=== PATIENT | male | born 1980 | race Asian ===

== ENCOUNTER 2020-03-28 07:39 | Outpatient (REF) | payer OTHER, SELFPAY ==
[2020-03-28 12:16] LABS: Anion Gap 11 (12-20); Blood Urea Nitrogen 16 mg/dL (9-16); Calcium 9.2 mg/dL (8.4-10.2); Carbon Dioxide 29 mmol/L (22-29); Chloride 103 mmol/L (96-108); Cholesterol 225 mg/dL; Estimated Glomerular Filt Rate > 60; Glucose Fasting 82 mg/dL (60-99); HDL Cholesterol 40 mg/dL; LDL Cholesterol Calculated 163 mg/dl; Potassium 3.8 mmol/l (3.3-5.1); Sodium 139 mmol/L (135-145); Triglycerides 110 mg/dL
== END 2020-03-28 07:40 | disposition home or self-care (01) ==
LOC: HO.HMGCLDS 07:39
PROVIDERS: PCP Internal Medicine; Visit Provider Internal Medicine
DX: E78.5 Hyperlipidemia, unspecified (principal); I10 Essential (primary) hypertension
CPT/HCPCS: 80048; 80061

== ENCOUNTER 2020-04-21 09:11 | Outpatient (REF) | payer OTHER, SELFPAY ==
--- NOTE | 2020-04-21 09:14 | CT_ITS ---
EXAMINATION: CT ANGIOGRAM BRAIN WITH CONTRAST CLINICAL INFORMATION: Hyperlipidemia. COMPARISON: None. TECHNIQUE: Test bolus sequences followed by intravenous administration 75 mL of Omnipaque 350. Helical imaging was performed in the axial plane from the skull base to the skull vertex. Delayed postcontrast imaging of the head was also performed. The data was processed at the mechatronics technologist workstation for generation of MIP sequences. Angled MIPs and volume rendered reformatted images were also generated at an offline 3D workstation. DLP: 2106 mGy-cm FINDINGS: Brain: There is no intracranial hemorrhage, extra-axial collection, mass effect, or territorial infarction. The ventricles are normal in size and configuration without evidence of hydrocephalus. On the postcontrast images, no abnormal enhancement is seen. The dural venous sinuses demonstrate normal opacification. There is mild paranasal sinus mucosal thickening without fluid levels. The mastoid air cells are clear. The orbital contents appear normal. Head CTA: No intracranial aneurysm is seen. The intracranial internal carotid arteries appear normal. The anterior cerebral artery, anterior communicating artery, and middle cerebral arteries appear normal. The intradural vertebral arteries and basilar artery appear normal. The posterior cerebral arteries appear normal. The posterior communicating arteries are not well seen. CT/CT angio head IMPRESSION: No intracranial abnormality identified. No stenosis, occlusion, or aneurysm seen within the intracranial arterial circulation.
[2020-04-21] MEDS: iohexoL 350 MG/ML 100 ML INFUS..BTL IV (10:48)
== END 2020-04-21 09:12 | disposition home or self-care (01) ==
LOC: HO.CT 09:11
PROVIDERS: PCP Internal Medicine; Visit Provider Internal Medicine
DX: E78.5 Hyperlipidemia, unspecified (principal); Z82.49 Family history of ischemic heart disease and other diseases of the circulatory system
CPT/HCPCS: 70496; Q9967

== ENCOUNTER 2020-12-09 10:08 | Outpatient (REF) | payer OTHER, SELFPAY ==
[2020-12-09 11:59] LABS: Alanine Aminotransferase 34 U/L (0-40); Aspartate Amino Transferase 23 U/L (5-37); Cholesterol 224 mg/dL; HDL Cholesterol 37 mg/dL; LDL Cholesterol Calculated 161 mg/dl; Triglycerides 132 mg/dL
== END 2020-12-09 10:09 | disposition home or self-care (01) ==
LOC: HO.HMGCLDS 10:08
PROVIDERS: PCP Internal Medicine; Visit Provider Internal Medicine
DX: E78.5 Hyperlipidemia, unspecified (principal)
CPT/HCPCS: 36415; 80061; 84450; 84460

== ENCOUNTER 2021-03-15 08:20 | Outpatient (REF) | payer OTHER, SELFPAY ==
[2021-03-15 12:02] LABS: Alanine Aminotransferase 34 U/L (0-40); Aspartate Amino Transferase 21 U/L (5-37); Cholesterol 156 mg/dL; HDL Cholesterol 39 mg/dL; LDL Cholesterol Calculated 97 mg/dl; Triglycerides 104 mg/dL
== END 2021-03-15 08:21 | disposition home or self-care (01) ==
LOC: HO.HMGCLDS 08:20
PROVIDERS: PCP Internal Medicine; Visit Provider Internal Medicine
DX: E78.5 Hyperlipidemia, unspecified (principal)
CPT/HCPCS: 36415; 80061; 82550; 84450; 84460

== ENCOUNTER → 2021-05-25 10:11 | Outpatient (BNVA) | payer OTHER, SELFPAY | PROVIDERS: PCP Internal Medicine; Referring Provider Internal Medicine; Visit Provider Internal Medicine | DX: Z82.49 Family history of ischemic heart disease and other diseases of the circulatory system (principal) | CPT/HCPCS: 93005; 99202 ==

== ENCOUNTER 2021-06-26 09:00 | Outpatient (RCR) | payer OTHER, SELFPAY ==
--- NOTE | 2021-05-24 12:54 | MHC.PT.EP ---
[facility] [place] Office [place] Office [place] Office [address] [phone] F: [phone] F: [phone] F: [phone] F: [phone] Physical Therapy Plan of Care Date of Evaluation: Date of Surgery: Diagnosis: dysfunction of sacral region Assessment: Patient is a 40 year old R handed male who presents with s/s consistent with pain dysfunction of SI joint. 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 Patient past medical history is fairly unremarkable. Current impairments include pain, posture, flexibility, ROM, strength, activity tolerance and functional mobility. Functional limitations include decreased ability to sit, transfer, sleep, stand, walk, and squat. Patient is motivated with good rehab potential. Skilled PT will address impairments and functional limitations in order to achieve goals. Frequency and Duration: The patient will be seen 1x/week for 5 weeks Short Term Goals: I with HEP - 2 weeks Full AROM pain free lumbar - 3 weeks Skilled Nursing Goals: Return to all ADLs - 5 weeks postural/positional modifications - 5 weeks Treatment Plan: Modalities to reduce pain, spasms and effusion. Manual therapy to restore motion and function. Therapeutic exercise to improve strength and flexibility. Neuromuscular re-education for posture and balance. Therapeutic activities to return to functional activities of daily living. Electronically signed by: Kilo Pretty, PT Please sign and return to therapist. Thank you for your referral.
--- NOTE | 2021-07-03 14:08 | MHC.PT.DC ---
[facility] [place] Office [place] Office [place] Office [address] Vikash Peralta [address] [phone] F: [phone] F: [phone] F: [phone] F: [phone] Physical Therapy Discharge Report Diagnosis: dysfunction of sacral region Date of Surgery: Date of Evaluation: 05/24/21 Date of Discharge: 07/03/21 Treatments to Date: 6 Cancellations to Date: 0 No Shows to Date: 0 Discharge Status: Improved Function Independent with HEP Discharge Summary: He did not attend final visit however he called and said he is ready for d/c. At time of last visit, he was I with HEP and demonstrated improved function. Electronically signed by: Shaniqua Rosen PT Please sign and return to therapist. Thank you for your referral.
== END 2021-07-03 14:08 | disposition home or self-care (01) ==
LOC: HO.PTCHIC 09:00
PROVIDERS: PCP Internal Medicine; Visit Provider Internal Medicine
DX: M99.04 Segmental and somatic dysfunction of sacral region (principal); M77.8 Other enthesopathies, not elsewhere classified
CPT/HCPCS: 97110; 97112; 97140; 97161; 97530

== ENCOUNTER → 2021-07-07 08:13 | Outpatient (REF) | payer OTHER, SELFPAY ==
--- NOTE | 2021-07-07 08:16 | CA_ITS ---
Transthoracic Echocardiogram Patient (Last, First, Middle): Moise Infante R Gender: Male Date of : 1980 Age: 40 Procedure Date: 07/07/2021 Procedure Type: Transthoracic Echocardiogram Location: OP Height: 167.64 cm Weight: 74.84 kg BSA: 1.84 m2 Heart Rate: bpm BP: 128 / 80 mmHg Auto Body Repairer: CARMINE Sr MD: Cali Aceves MD Registration Rep: Xavier Day MD Symptoms: I49.8 - Other specified cardiac arrhythmias Study Quality: Good ECG Rhythm: Sinus Conclusions: - Normal study Findings Left Ventricle Normal left ventricular size, thickness, and systolic function. The visually estimated ejection fraction is between 60-65%. Diastolic function is normal for age. Right Ventricle Normal right ventricular cavity size and systolic function. Atria Both atria are normal in size. There is no evidence of interatrial shunt. Aortic Valve Normal aortic valve structure and function. There is no aortic valve stenosis. There is no aortic valve regurgitation. Mitral Valve Normal mitral valve structure and function. There is trace mitral valve regurgitation. There is no mitral valve stenosis. Pulmonic Valve The pulmonic valve is likely normal. Tricuspid Valve Normal tricuspid valve structure. There is trace tricuspid valve regurgitation. The right ventricular systolic pressure is 13 mmHg. Normal right atrial pressure. There is no evidence of pulmonary hypertension. Great Vessels All visible segments of the aorta are normal in size. The pulmonary artery was not well visualized. Venous The inferior vena cava is normal in size and collapses greater than 50% with inspiration. Pericardium/Pleural There is no evidence of pericardial effusion. Prior Study Comparison No prior study available for comparison. Measurements 2D Linear Measurements IVSd: 0.97 0.6-0.9/0.6-1.0 cm LVIDd: 4.62 3.9-5.3/4.2-5.9 cm LVIDd Index: 2.51 2.4-3.2/2.2-3.1 cm/m2 LVIDs: 2.58 2.0-3.6 cm LVPWd: 0.78 0.7-1.1 cm Ao Root: 3.20 2.1-3.5 cm LA Diam: 3.50 2.7-3.8/3.0-4.0 cm LAIDs Index: 1.90 1.5-2.3 cm/m2 LV Mass: 166.64 67-162/88-224 g LV Mass Index: 90.56 43-95/49-115 g/m2 LVOT Diam: 2.00 3.0+(-)1.3 cm 2D Systolic Function EF 4C: 57.40 >55% EF 2C: 61.80 >55% EF BiP: 60.30 >55% Mitral Valve MV Pk E: 0.79 MV PK A: 0.53 MV Decel Time: 238.00 E/A: 1.50 E'Lateral: 9.03 E'Medial: 8.16 E/E' Med: 9.70 E/E' Lat: 8.80 PHT: 70.00 MVA PHT: 3.14 Decel Hyde: 3.34 LVOT LVOT Diam: 2.00 LVOT Area: 3.14 Diastolic Function MV Pk E: 0.79 MV Pk A: 0.53 E/A: 1.50 E'Medial: 8.16 E/E' Med: 9.70 E' Laterial: 9.03 E/E' Lat: 8.80 Right Ventricle TAPSE (mm): 17.00 TVS' Agustín: 10.00 Tricuspid Valve TR Pk Agustín: 1.55 TR Pk Grad: 10.00 RA Press: 3.00 RVSP: 13.00 Great Vessels Aorta Ao Root-2D: 3.20 2.0-3.7 cm Ao Asc: 2.90 2.1-3.4 cm Ao Arch: 2.70 Updated in Other Vendor System with Status of Final Xavier Day MD electronically signed on 07/07/2021 4:58:31 PM with status of Final
== END ==
LOC: HO.CARD 08:13
PROVIDERS: PCP Internal Medicine; Visit Provider Internal Medicine
DX: I49.8 Other specified cardiac arrhythmias (principal)
CPT/HCPCS: 93306

== ENCOUNTER 2021-10-13 10:05 | Outpatient (REF) | payer OTHER, SELFPAY ==
--- NOTE | ~2021-10-13 | FL_ITS ---
EXAMINATION: UPPER GI AND BARIUM SWALLOW CLINICAL INFORMATION: Dysphagia. COMPARISON: None. TECHNIQUE: Upper GI and barium swallow were performed using thin and thick barium and effervescent granules. Barium tablet was also administered. Fluoroscopy time: 1 minute. DAP: 6 Gy-cm2. Images: 5 saved fluoroscopic images. FINDINGS: Esophageal motility is normal. No aspiration or penetration is seen. No esophageal hernia, reflux or stricture is seen. Tablet passed freely into the stomach. The stomach and duodenum are normal appearing. No fold thickening, mass, ulcer or stricture is seen. FL/FL upper GI w Ba Swallow IMPRESSION: Normal barium swallow and upper GI.
== END 2021-10-13 10:06 | disposition home or self-care (01) ==
LOC: HO.XRAY 10:05
PROVIDERS: Visit Provider Internal Medicine
DX: R13.10 Dysphagia, unspecified (principal)
CPT/HCPCS: 74240

== ENCOUNTER 2022-01-18 07:25 | Outpatient (REF) | payer OTHER, SELFPAY ==
[2022-01-18 12:14] LABS: Alanine Aminotransferase 39 U/L (0-40); Aspartate Amino Transferase 22 U/L (5-37); Cholesterol 170 mg/dL; Glucose Fasting 96 mg/dL (60-99); HDL Cholesterol 36 mg/dL; LDL Cholesterol Calculated 94 mg/dl; Triglycerides 201 mg/dL
== END 2022-01-18 07:26 | disposition home or self-care (01) ==
LOC: HO.HMGCLDS 07:25
PROVIDERS: PCP Internal Medicine; Visit Provider Internal Medicine
DX: E78.5 Hyperlipidemia, unspecified (principal)
CPT/HCPCS: 36415; 80061; 82947; 84450; 84460

== ENCOUNTER → 2022-05-28 10:10 | Outpatient (BNVA) | payer OTHER, SELFPAY | PROVIDERS: PCP Internal Medicine; Referring Provider Internal Medicine; Visit Provider Internal Medicine | DX: Z76.89 Persons encountering health services in other specified circumstances (principal); Z82.49 Family history of ischemic heart disease and other diseases of the circulatory system | CPT/HCPCS: 93005; 99212 ==

== ENCOUNTER 2023-03-04 09:16 | Outpatient (AMB) | payer OTHER, SELFPAY ==
[2023-03-04 09:42] VITALS: BP 120/82; PULSE 68; O2SAT 98; BMI 27.8
--- NOTE | 2023-03-04 09:42 | A.OFFPC_ITS ---
Vital Signs 03/04/23 09:42 Height 5 ft 5 in Weight 167 lb 4 oz BMI 27.8 BP 120/82 Blood Pressure Location Lt brachial Position Sitting Pulse 68 Pulse Source Pulse Oximeter Pulse Oximetry (%) 98 Oxygen Delivery Method Room Air Intake Visit Reasons: Annual PE+ NEEDS PHQ9/THRIVE Intake Note: pt is here for a PE Allergies No Known Allergies Allergy (Verified 03/04/23 10:20) Medication List - Last Reconciled 03/04/23 by Puja Nunez MD No Known Home Meds Tobacco use date assessed: 03/04/23 Dental Screening Dental Screen Date: 03/04/23 Did you have a dental visit in the last 12 months?: Yes Did you have a dental problem in the last 6 months where you did not have access to dental care?: No Was dental information given to patient?: Patient has dentist HPI Annual PE+ NEEDS PHQ9/THRIVE HPI Details 42 year-old male, here today for his ph ysical exam. Has history of dyslipidemia, and family history of Brugada syndrome, seen earlier this year by Cardiology, with no clear evidence of Brugada on EKGs. Had an Echocardiogram done with LVEF of 60-65% and otherwise unremarkable. As per Cardiology no specific treatment indicated at this. He has been feeling well, with no comp laints at present time, previously was on rosuvastatin, but stop taking it, does not think that he needs it at this time as his last lipid panel was within normal limits. [facility] Medical History Difficulty swallowing Right wrist tendinitis Somatic dysfunction of left sacroiliac joint Dyslipidemia Family history of aneurysm of blood vessel of brain Surgical History No pertinent past surgical history Family History Father Hypertension Mother Brain aneurysm Diabetes mellitus Other Brugada syndrome Social History Housing: House Alcohol intake: never Patient Tobacco Use Status: Never used Tobacco e-Cigarette/Vaping Use: Never Used Second Hand Smoke Exposure: No service: No Current occupational status: employed Cognitive needs: No Hearing needs: No Vision needs: No Questionnaire PHQ-9 Over the last 2 weeks, how often have you been bothered by any of the following problems? 1. Little interest or pleasure in doing things: not at all 2. Feeling down, depressed, or hopeless: not at all 3. Trouble falling or staying asleep, or sleeping too much: not at all 4. Feeling tired or having little energy: not at all 5. Poor appetite or overeating: not at all 6. Feeling bad about yourself - or that you are a failure or have let yourself or your family down: not at all 7. Trouble concentrating on things, such as reading the newspaper or watching television: not at all 8. Moving or speaking so slowly that other people could have noticed. Or the opposite - being so fidgety or restless that you have been moving around a lot more than usual: not at all 9. Thoughts that you would be better off or of hurting yourself in some way: not at all Total score: 0 Depression Screening Interpretation: Negative Depression Screening Done: Yes 75989 - PHQ-9 Billing: Yes Source: Developed by Drs. Serafin Cardenas, Alia Romero, Abisai Ha and colleagues, with an educational mari from [employer]. Thrive Questionnaire Date Thrive assessed: 03/04/23 I am a: Patient What is your living situation today?: I have a steady place to live Within the past 12 months, did the food you bought not last and you didn't have the money to get more?: Never true Within the past 12 months, did you worry whether your food would run out before you got money to buy more?: Never true Do you have trouble paying for medicines?: No Do you have trouble getting transportation to medical appointments?: No Do you have trouble paying your heating and electricity bill?: No Do you have trouble taking care of your child, family member or friend?: No Do you have trouble with day-to-day activities such as bathing, preparing meals, shopping, managing finances, etc.?: No Are you currently unemployed and looking for a job?: No Are you interested in more education?: No AUDIT C Alcohol Use Questionnaire (AUDIT-C) 1. How often do you have a drink containing alcohol?: Monthly or less 2. How many drinks containing alcohol do you have on a typical day when you are drinking?: 1 or 2 3. How often do you have six or more drinks on one occasion?: Never Total Score: 1 FRANK-7 AMB Questionnaire FRANK-7 Date FRANK - 7 assessed: 03/04/23 Feeling nervous, anxious, or on edge: 0 = Not at all Not being able to stop or control worryin = Not at all Worrying too much about different things: 0 = Not at all Trouble relaxin = Not at all Being so restless that it is hard to sit still: 0 = Not at all Becoming easily annoyed or irritable: 0 = Not at all Feeling afraid as if something awful might happen: 0 = Not at all Total FRANK-7 score (0-4 normal; 5-9 mild; 10-14 moderate; 15-21 severe): 0 Source: Developed by Drs. Serafin Cardenas, Alia Romero, Abisai Ha and colleagues, with an educational mari from [employer]. FRANK-7 Assessment Billing FRAKN-7 Assessment Tool: FRANK-7 Assessment 39782 Review of Systems Const Denies headache(s), Denies lethargy, Denies malaise and Denies weakness Eyes Reports requires corrective lenses ENT Details: Sees dentist every 6 months Denies dizziness and Denies headache(s) Card Denies chest pain, Denies chest pain with activity, Denies rapid heart rate, Denies irregular heart rhythm, Denies lightheadedness and Denies dyspnea Resp Denies cough and Denies dyspnea GI Denies abdominal pain, Denies change in bowel habits and Denies heartburn Reports no additional complaints Musc Denies deformity, Denies joint swelling and Denies numbness Skin/Breast Denies lesions and Denies rash Neuro Denies dizziness, Denies headache(s), Denies numbness and Denies weakness Psych Reports no additional complaints Endo Reports no additional complaints Og/Lymph Reports no additional complaints Aller/Immun Reports no additional complaints Physical exam (Primary Care) Vital Signs: Last Vital Signs Pulse 68 03/04/23 09:42 BP 120/82 03/04/23 09:42 Pulse Ox 98 03/04/23 09:42 Oxygen Delivery Method Room Air 03/04/23 09:42 BMI result Body Mass Index 27.8 Tobacco/Smoking Status: Tobacco use Status Tobacco use date assessed 03/04/23 03/04/23 09:48 Patient Tobacco Use Status Never used Tobacco 03/04/23 09:42 e-Cigarette/Vaping Use Never Used 03/04/23 09:42 PHQ-9: PHQ-9 Score PHQ-9: Total score 0 03/17/23 23:24 Depression Screening Interpretation: Negative Thrive Assessment: Date of Thrive Assessment Date Thrive assessed 03/04/23 03/04/23 09:50 Const General: cooperative, comfortable and no acute distress Orientation/consciousness: patient oriented x3 HENMT Mouth: Normal oral and palatal mucosa present, lip normal, tongue normal and moist mucous membranes Eyes General: appearance normal, both eyes and all related structures Neck Neck: Yes full ROM, Yes no lymphadenopathy and Yes supple Thyroid: Thyroid normal Chest Chest palpation & inspection: normal inspection of the chest Resp Effort & Inspection: normal respiratory effort and able to speak in complete sentences Auscultation: clear to auscultation bilaterally Cardio Other: S1-S2 present regular rate and rhythm GI Palpation (GI): Soft to palpation, nontender and no guarding Auscultation: normal bowel sounds General: Yes no CVA tenderness Male General Exam: Yes normal external exam Back/Spine/Pelvis Back: no CVA tenderness and No back tenderness Skin General skin exam: no rashes or lesions noted Neuro General: patient oriented x3, gait normal, tone normal, moves all extremities, Normal light touch and pain sensation, no focal motor deficits and CN's II-XI intact bilaterally Extrem General: Yes full ROM, Yes no clubbing, cyanosis or edema, Yes no pedal edema and Yes normal gait Psych Appearance: grossly normal and well kempt Mental Status: mental status grossly normal Speech and movement: Normal speech and movement present Affect: normal affect Attitude: cooperative Thought process: Normal thought process present Assessment and Plan Assessment & Plan (1) Adult general medical exam: Code(s): Z00.00 - Encounter for general adult medical examination without abnormal findings Plan: Will check appropriate labs. Recommended dental visit every 6 months and regular eye exams, at least every 2 years. Take adequate calcium in diet and vitamin-D 3 at 2000 IU per cap once a day, in addition to weight-bearing exercises to help maintain good muscle tone and weight control. Instructed to do self testicular exam to check for any mass. Reminded to get his flu shot and flu COVID booster, up-to-date with his Tdap (2) Dyslipidemia: Code(s): E78.5 - Hyperlipidemia, unspecified Plan: fasting lipid profile ordered . Continue with adherence to low-cholesterol diet and regular exercise, at least 30 minutes 3 to 4 times a week. Advised patient to make healthy food choices, eat more fruits, vegetables, whole grains, wild caught fish and low-fat dairy. Limit amount of meat and fried or fatty food products, as well as processed foods and fast foods. Orders: Orders Lipid Panel 03/04/23 Z00.00 - Encounter for general adult medical examination without abnormal findings, E78.5 - Hyperlipidemia, unspecified Alanine Aminotransferase 03/04/23 Z00.00 - Encounter for general adult medical examination without abnormal findings, E78.5 - Hyperlipidemia, unspecified Aspartate Amino Transferase 03/04/23 Z00.00 - Encounter for general adult medical examination without abnormal findings, E78.5 - Hyperlipidemia, unspecified Basic Metabolic Panel Fasting 03/04/23 Z00.00 - Encounter for general adult medical examination without abnormal findings, E78.5 - Hyperlipidemia, unspecified Vitamin D 25-OH Total 03/04/23 Z00.00 - Encounter for general adult medical examination without abnormal findings, E78.5 - Hyperlipidemia, unspecified Coding Level of Care Code Est Pt Prev Care 40-64y(14704) Diagnoses Adult general medical exam Z00.00 Dyslipidemia E78.5 Additional Codes FRANK-7 Assessment Billing - FRANK-7 Assessment Tool: FRANK-7 Assessment 67845 ([id number])
== END 2023-03-04 10:41 | disposition home or self-care (01) ==
PROVIDERS: PCP Internal Medicine; Visit Provider Internal Medicine
DX: Z00.00 Encounter for general adult medical examination without abnormal findings (principal); E78.5 Hyperlipidemia, unspecified
CPT/HCPCS: 99396

== ENCOUNTER 2023-03-04 10:42 | Outpatient (REF) | payer OTHER, SELFPAY ==
[2023-03-04 13:47] LABS: Alanine Aminotransferase 44 U/L (0-40); Anion Gap 14 (12-20); Aspartate Amino Transferase 22 U/L (5-37); Blood Urea Nitrogen 13 mg/dL (9-16); Calcium 9.8 mg/dL (8.4-10.2); Carbon Dioxide 25 mmol/L (22-29); Chloride 105 mmol/L (96-108); Cholesterol 260 mg/dL (<200); Estimated Glomerular Filt Rate > 60; Glucose Fasting 85 mg/dL (60-99); HDL Cholesterol 39 mg/dL (>40); LDL Cholesterol Calculated 185 mg/dL (<100); Potassium 4.2 mmol/L (3.3-5.1); Sodium 140 mmol/L (135-145); Triglycerides 180 mg/dL (<150)
== END 2023-03-04 10:43 | disposition home or self-care (01) ==
LOC: HO.HMGCLDS 10:42
PROVIDERS: PCP Internal Medicine; Visit Provider Internal Medicine
DX: Z00.00 Encounter for general adult medical examination without abnormal findings (principal); E78.5 Hyperlipidemia, unspecified
CPT/HCPCS: 36415; 80048; 80061; 82306; 84450; 84460

== ENCOUNTER 2023-05-13 08:29 | Emergency (ER) | payer SELFPAY ==
--- NOTE | ~2023-05-13 | XR_ITS ---
EXAMINATION: XR LUMBOSACRAL SPINE CLINICAL INFORMATION: Pain COMPARISON: None available. TECHNIQUE: Three views of the lumbosacral spine. FINDINGS: The vertebral bodies and posterior elements are normal. The disc spaces are preserved and the vertebral alignment is normal. The paraspinal soft tissues are normal. XR/XR lumbar spine 2-3V IMPRESSION: No fracture or dislocation. Bone alignments are satisfactory.
[2023-05-13 08:33] VITALS: BP 121/86; PULSE 62; RESP 16; TEMP 36.6; O2SAT 98; BMI 26.2
--- NOTE | 2023-05-13 09:27 | ED.BACK ---
HPI - Back Pain/Injury General Chief Complaint: Back Pain/Injury Stated Complaint: back pain Time Seen by Provider: 05/13/23 09:03 Source: patient Mode of arrival: ambulatory Limitations: no limitations History of Present Illness HPI Narrative: 42 year old male with pmhx significant for dyslipidemia presents to the ED today for evaluation of right low back pain x1 day. States that he was sitting on the floor wrapping presents yesterday when he twisted his back to the right and felt a popping sensation. Pain is localized to right low back. Does not radiate down extremities. Reports taking ibuprofen for this at home with some relief. Last dose yesterday. Reports difficulty sleeping last night due to the pain. Denies difficulty ambulating. Admits this has happened to him in the past. He see's a chiropractor for adjustments. Last adjustment was one year ago. Denies IVDU. Denies fever, chills, neck pain, bowel or bladder incontinence or retention, numbness/tingling/weakness in the lower extremities, dysuria, hematuria, saddle anesthesia. Related Data Previous Rx's Medication Instructions Recorded rosuvastatin 10 mg tablet 10 mg PO DAILY #90 tabs 03/18/23 cyclobenzaprine 5 mg tablet 5 mg PO BEDTIME PRN muscle spasm 05/13/23 #7 tabs lidocaine 5 % topical patch 1 patch topical DAILY #15 ea 05/13/23 (Lidoderm) naproxen 500 mg tablet 500 mg PO Q8-12H PRN pain (scale 05/13/23 score 4-6) #14 tabs Allergies Allergy/AdvReac Type Severity Reaction Status Date / Time No Known Allergies Allergy Verified 05/13/23 08:33 Review of Systems Review of Systems: Constitutional: No fever, chills, fatigue, night sweats, weight changes ENT/Mouth: No ear pain, hearing loss, nasal congestion, sinus pain, rhinorrhea, sore throat Eyes: No eye pain, swelling, redness, vision changes, discharge Cardio: No chest pain, palpitations, CLARK, orthopnea, peripheral edema Pulm: No SOB, cough, sputum, wheezing, dyspnea, hemoptysis GI: No nausea, vomiting, hematemesis, abdominal pain, diarrhea, constipation, hematochezia, melena : No irregular bleeding, dysuria, frequency, urgency, hesitancy, hematuria, flank pain, urinary flow changes, urinary incontinence or retention MSK: +back pain, No neck pain, joint pain, myalgias Skin: No lesions, rashes Neuro: No weakness, numbness, paresthesias, LOC, dizziness, headache All other systems reviewed and are negative. [facility] Past Medical History Medical History Difficulty swallowing Right wrist tendinitis Somatic dysfunction of left sacroiliac joint Dyslipidemia Family history of aneurysm of blood vessel of brain Surgical History No pertinent past surgical history Family History Family History Father Hypertension Mother Brain aneurysm Diabetes mellitus Other Brugada syndrome Social History Social History Housing: House Alcohol intake: never Patient Tobacco Use Status: Never used Tobacco e-Cigarette/Vaping Use: Never Used Second Hand Smoke Exposure: No Advance Directives: No Advance Directives Information Provided: Yes service: No Current occupational status: employed Cognitive needs: No Hearing needs: No Vision needs: No Physical Exam Vital Signs: Vital Signs: Last Vital Signs Temp 97.9 F 05/13/23 08:33 Pulse 62 05/13/23 08:33 Resp 16 05/13/23 08:33 BP 121/86 05/13/23 08:33 Pulse Ox 98 05/13/23 08:33 O2 Del Method Room Air 05/13/23 08:33 BMI result Body Mass Index 26.2 Vital signs stable, afebrile Const: General: cooperative, healthy appearing, comfortable, no acute distress, alert, awake and Physically active Orientation/consciousness: patient oriented x3 HEENT: Head: Yes normal to inspection, Yes normocephalic and Yes atraumatic Eyes: General: appearance normal, both eyes and all related structures Pupils: Equal, round and reactive pupils present EOM: EOMs intact bilaterally Neck: Other: + no cervical midline spinous tenderness or step-off deformity. Neck: Yes normal visual inspection, Yes full ROM and Yes no meningeal signs Resp: Effort & Inspection: normal respiratory effort Auscultation: clear to auscultation bilaterally Cardio: Rate: regular rate Rhythm: regular rhythm GI: Inspection: Yes normal to inspection Palpation (GI): Soft to palpation and nontender : General: Yes no CVA tenderness Back/Spine/Pelvis: Other: No midline spinous tenderness. No paraspinal muscle tenderness. No step off deformity. Ambulating with steady gait. Negative straight leg raise. Full ROM intact to bilateral hips. Back: no CVA tenderness Neuro: Other: Strength 5/5 intact throughout.? No saddle anesthesia.? Sensation intact to light touch.? Neurovascular intact distally.? General: patient oriented x3, gait normal and no meningeal signs Cranial nerves: Yes Equal, round and reactive pupils present Gait exam (Neuro): Normal gait present Deep tendon reflexes (DTR's): Right patellar reflex intensity grade: 2+ and Left patellar reflex intensity grade: 2+ Course Course Course Narrative: 1050-- on re-evaluation, patient states resolution of pain with muscle relaxer and Toradol. He is ambulating around the room with steady gait. Lumbar x-rays unremarkable. Informed patient of x-ray results. Patient likely has a muscular strain. Will send Flexeril, naproxen and lidocaine patches to pharmacy. He states that he will be calling his family for a ride home as he recieved a muscle relaxer in ED. Discussed worrisome signs and symptoms of when to return. Patient has remained stable throughout ED visit today. All questions answered at this time. Patient is agreeable with disposition and stable for discharge. Medications Administered Discontinued Medications Generic Name Dose Route Start Last Admin Trade Name Freq PRN Reason Stop Dose Admin Cyclobenzaprine HCl 10 mg 05/13/23 09:22 05/13/23 09:29 Cyclobenzaprine Hcl 10 Mg Tablet PO 05/13/23 09:23 10 mg ONCE ONE Administration Ketorolac Tromethamine 60 mg 05/13/23 09:22 05/13/23 09:30 Ketorolac Tromethamine 60 Mg/2 Ml Vial IM 05/13/23 09:23 60 mg ONCE ONE Administration Medical Decision Making Medical Decision Making [facility] Narrative: 42 year old male with pmhx significant for dyslipidemia presents to the ED today for evaluation of right low back pain x1 day. VSS. Afebrile. Nontoxic appearing and in NAD. No midline spinous tenderness. No step-off deformity. No paraspinal muscle tenderness bilaterally. Negative straight leg raise. Full ROM intact to bilateral hips. Ambulating with steady gait. Neurovascularly intact distally. 2+ DP/PT pulses bilaterally. 2+ patellar DTRs intact bilaterally. Exam nonfocal. Concern for MSK sprain/strain, fracture, subluxation, disc herniation, sciatica. Hip dislocation/fracture. Unlikely cord compression, cauda equina, Guillain-Lagrange, epidural abscess. Plan for imaging and pain control. Differential Diagnosis Differential Diagnoses: The differential diagnosis associated with the presentation includes as above Admission/Observation Not indicated. Independent Interpretation I performed an independent interpretation of an: Plain X-Ray Interpretation: X-ray lumbar spine without acute fracture or subluxation, agree with radiologist's interpretation. Radiology Impression Discussion of test interpretation with radiology: I have reviewed the radiologist's reading. Radiologist Impression: XR lumbar spine 2-3V IMPRESSION: No fracture or dislocation. Bone alignments are satisfactory. External Record Review External record reviewed: Inpatient record Prescription Management I considered prescription management with: Pain Medication and Other (Muscle relaxer, steroid) Discharge Plan Discharge Clinical Impression: Strain of lumbar region Patient Disposition: Home, Self-Care Instructions: Low Back Strain (ED), Back Pain (ED) Additional Instructions: Your imaging studies today did not show acute fracture. Your pain improved with muscle relaxer today. Your pain is likely musculoskeletal. Avoid bending, lifting, or twisting. Use ice several times per day for 20 minutes at a time for the next 48 hours and then change to heat. Flexeril is a muscle relaxer. Take this at night as it makes you drowsy. Do not drive, drink alcohol, or operate machinery while taking it. Naproxen is an anti-inflammatory / pain medication. Take with food. Do not take this with Ibuprofen. Lidoderm patches are numbing patches. Apply to painful areas. In addition you may take Tylenol at home. Follow up with your primary care provider as needed If your pain worsens, if you develop new numbness, tingling, weakness, loss of bowel or bladder function call 911 or return to the ER immediately for evaluation. Prescriptions: New lidocaine [Lidoderm] 5 % adhesive patch,medicated 1 patch topical DAILY Qty: 15 0RF Rx Instructions: leave on most painful area for up to 12 hrs naproxen 500 mg tablet 500 mg PO Q8-12H PRN (Reason: pain (scale score 4-6)) Qty: 14 0RF cyclobenzaprine 5 mg tablet 5 mg PO BEDTIME PRN (Reason: muscle spasm) Qty: 7 0RF No Action rosuvastatin 10 mg tablet 10 mg PO DAILY Qty: 90 3RF Referrals: Puja Nunez MD [Primary Care Provider] - Discharge Date/Time: 05/13/23 10:53
[2023-05-13] MEDS: Cyclobenzaprine HCl 10 MG TABLET PO (09:29)
[2023-05-13] MEDS: Ketorolac Tromethamine 60 MG/2 ML VIAL IM (09:30)
--- NOTE | 2023-05-13 09:32 | PC.NURSE ---
resting comfortably at this time, medicated per the MAR for pain
== END 2023-05-13 10:53 | disposition home or self-care (01) ==
PROVIDERS: Emergency Provider Student in an Organized Health Care Education/Training Program; PCP Internal Medicine
DX: S39.012A Strain of muscle, fascia and tendon of lower back, initial encounter (principal); X50.1XXA Overexertion from prolonged static or awkward postures, initial encounter; Y93.89 Activity, other specified; Y92.9 Unspecified place or not applicable; Y99.9 Unspecified external cause status
CPT/HCPCS: 72100; 96372; 99283; 99284; J1885

== ENCOUNTER 2023-11-20 12:52 | Outpatient (AMB) | payer OTHER, SELFPAY ==
[2023-11-20 12:57] VITALS: BP 110/62; PULSE 83; O2SAT 97; BMI 27.6
--- NOTE | 2023-11-20 12:57 | MHC.PC.OV ---
Vital Signs 11/20/23 12:57 Height 5 ft 5 in Weight 166 lb BMI 27.6 BP 110/62 Blood Pressure Location Lt brachial Position Sitting Pulse 83 Pulse Source Pulse Oximeter Pulse Oximetry (%) 97 Oxygen Delivery Method Room Air Intake Visit Reasons: Tiredness Intake Note: Pt is here today c/o consent fatigue Allergies No Known Allergies Allergy (Verified 11/20/23 13:25) Medication List - Last Reconciled 11/20/23 by Puja Nunez MD rosuvastatin 10 mg PO DAILY Tobacco use date assessed: 11/20/23 Dental Screening Dental Screen Date: 11/20/23 Did you have a dental visit in the last 12 months?: Yes Did you have a dental problem in the last 6 months where you did not have access to dental care?: No Was dental information given to patient?: Patient has dentist HPI Tiredness HPI Details 43-year-old male with hyperlipidemia, here today complaining of feeling tired all the time. He states that he would sometimes wake up tired and does not feel that he had a restful sleep. 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 He has been told occasions that he also snores when sleeping. [facility] Medical History (Updated 11/20/23 @ 13:33 by Puja Nunez MD) Loud snoring Excessive daytime sleepiness Chronic fatigue Difficulty swallowing Right wrist tendinitis Somatic dysfunction of left sacroiliac joint Dyslipidemia Family history of aneurysm of blood vessel of brain Surgical History No pertinent past surgical history Family History Father Hypertension Mother Brain aneurysm Diabetes mellitus Other Brugada syndrome Social History Housing: House Alcohol intake: never Patient Tobacco Use Status: Never used Tobacco e-Cigarette/Vaping Use: Never Used Second Hand Smoke Exposure: No service: No Current occupational status: employed Cognitive needs: No Hearing needs: No Vision needs: Yes Questionnaire PHQ-9 Over the last 2 weeks, how often have you been bothered by any of the following problems? 1. Little interest or pleasure in doing things: not at all 2. Feeling down, depressed, or hopeless: not at all 3. Trouble falling or staying asleep, or sleeping too much: not at all 4. Feeling tired or having little energy: not at all 5. Poor appetite or overeating: not at all 6. Feeling bad about yourself - or that you are a failure or have let yourself or your family down: not at all 7. Trouble concentrating on things, such as reading the newspaper or watching television: not at all 8. Moving or speaking so slowly that other people could have noticed. Or the opposite - being so fidgety or restless that you have been moving around a lot more than usual: not at all 9. Thoughts that you would be better off or of hurting yourself in some way: not at all Total score: 0 Depression Screening Interpretation: Negative Depression Screening Done: Yes 50529 - PHQ-9 Billing: Yes Source: Developed by Drs. Serafin Cardenas, Alia Romero, Abisai Ha and colleagues, with an educational mari from [employer]. Thrive Questionnaire Date Thrive assessed: 11/20/23 I am a: Patient What is your living situation today?: I have a steady place to live Within the past 12 months, did the food you bought not last and you didn't have the money to get more?: Never true Within the past 12 months, did you worry whether your food would run out before you got money to buy more?: Never true Do you have trouble paying for medicines?: No Do you have trouble getting transportation to medical appointments?: No Do you have trouble paying your heating and electricity bill?: No Do you have trouble taking care of your child, family member or friend?: No Do you have trouble with day-to-day activities such as bathing, preparing meals, shopping, managing finances, etc.?: No Are you currently unemployed and looking for a job?: No Are you interested in more education?: No THRIVE Score: 0 AUDIT C Alcohol Use Questionnaire (AUDIT-C) 1. How often do you have a drink containing alcohol?: Monthly or less 2. How many drinks containing alcohol do you have on a typical day when you are drinking?: 1 or 2 3. How often do you have six or more drinks on one occasion?: Never Total Score: 1 FRANK-7 AMB Questionnaire FRANK-7 Date FRANK - 7 assessed: 11/20/23 Feeling nervous, anxious, or on edge: 0 = Not at all Not being able to stop or control worryin = Not at all Worrying too much about different things: 0 = Not at all Trouble relaxin = Not at all Being so restless that it is hard to sit still: 0 = Not at all Becoming easily annoyed or irritable: 0 = Not at all Feeling afraid as if something awful might happen: 0 = Not at all Total FRANK-7 score (0-4 normal; 5-9 mild; 10-14 moderate; 15-21 severe): 0 Source: Developed by Drs. Serafin Cardenas, Alia Romero, Abisai Ha and colleagues, with an educational mari from [employer]. FRANK-7 Assessment Billing FRANK-7 Assessment Tool: FRANK-7 Assessment 06869 Review of Systems Card Denies chest pain, Denies chest pain at rest, Denies syncope, Denies irregular heart rhythm, Denies lightheadedness and Denies dyspnea Resp Denies chest congestion, Denies cough and Denies dyspnea GI Reports no additional complaints Musc Reports no additional complaints Neuro Reports no additional complaints and Denies syncope Psych Reports no additional complaints Endo Reports no additional complaints Physical exam (Primary Care) Vital Signs: Last Vital Signs Pulse 83 11/20/23 12:57 BP 110/62 11/20/23 12:57 Pulse Ox 97 11/20/23 12:57 Oxygen Delivery Method Room Air 11/20/23 12:57 BMI result Body Mass Index 27.6 Tobacco/Smoking Status: Tobacco use Status Tobacco use date assessed 11/20/23 11/20/23 13:02 Patient Tobacco Use Status Never used Tobacco 11/20/23 13:02 e-Cigarette/Vaping Use Never Used 11/20/23 13:02 PHQ-9: PHQ-9 Score PHQ-9: Total score 0 11/20/23 13:31 Depression Screening Interpretation: Negative Thrive Assessment: Date of Thrive Assessment Date Thrive assessed 11/20/23 11/20/23 13:05 Const General: cooperative and no acute distress Orientation/consciousness: patient oriented x3 HENMT Mouth: Normal oral and palatal mucosa present and moist mucous membranes Eyes General: appearance normal, both eyes and all related structures Neck Neck: Yes full ROM, Yes no lymphadenopathy and Yes supple Thyroid: Thyroid normal Resp Effort & Inspection: normal respiratory effort and able to speak in complete sentences Auscultation: clear to auscultation bilaterally Cardio Other: S1-S2 present regular rate and rhythm GI Palpation (GI): Soft to palpation, nontender and no guarding Auscultation: normal bowel sounds General: Yes no CVA tenderness Male General Exam: Yes normal external exam Back/Spine/Pelvis Back: no CVA tenderness and No back tenderness Neuro General: patient oriented x3, gait normal, tone normal, moves all extremities, Normal light touch and pain sensation, no focal motor deficits and CN's II-XI intact bilaterally Extrem General: Yes full ROM, Yes no clubbing, cyanosis or edema, Yes no pedal edema and Yes normal gait Psych Appearance: grossly normal and well kempt Mental Status: mental status grossly normal Speech and movement: Normal speech and movement present Affect: normal affect Attitude: cooperative Thought process: Normal thought process present Assessment and Plan Assessment & Plan (1) Chronic fatigue: Code(s): R53.82 - Chronic fatigue, unspecified (2) Excessive daytime sleepiness: Code(s): G47.19 - Other hypersomnia (3) Loud snoring: Code(s): R06.83 - Snoring Plan: Labs ordered check thyroid stimulating hormone with reflex free T4, vitamin-D level, panel, Lyme titers, CBC and vitamin B12 and folic acid. He also has been referred to the sleep clinic for further evaluation. Orders: Orders TSH reflex Free T4 11/20/23 G47.19 - Other hypersomnia, R53.82 - Chronic fatigue, unspecified Vitamin D 25-OH Total 11/20/23 G47.19 - Other hypersomnia, R53.82 - Chronic fatigue, unspecified Lipid Panel 11/20/23 G47.19 - Other hypersomnia, R53.82 - Chronic fatigue, unspecified Lyme IgG/IgM w/reflex to WB 11/20/23 G47.19 - Other hypersomnia, R53.82 - Chronic fatigue, unspecified Complete Blood Count Auto Diff 11/20/23 G47.19 - Other hypersomnia, R53.82 - Chronic fatigue, unspecified Vitamin B12 and Folate 11/20/23 G47.19 - Other hypersomnia, R53.82 - Chronic fatigue, unspecified Referrals Sleep Medicine Referral G47.19 - Other hypersomnia, R06.83 - Snoring, R53.82 - Chronic fatigue, unspecified Coding Level of Care Code Est Pt Level 4 (51111) Diagnoses Chronic fatigue R53.82 Excessive daytime sleepiness G47.19 Loud snoring R06.83 Additional Codes FRANK-7 Assessment Billing - FRANK-7 Assessment Tool: FRANK-7 Assessment [id number] ([id number])
== END 2023-11-20 14:09 | disposition home or self-care (01) ==
PROVIDERS: PCP Internal Medicine; Visit Provider Internal Medicine
DX: R53.82 Chronic fatigue, unspecified (principal); G47.19 Other hypersomnia; R06.83 Snoring
CPT/HCPCS: 99214

== ENCOUNTER 2023-11-22 10:15 | Outpatient (REF) | payer SELFPAY ==
[2023-11-22 13:21] LABS: MANUAL DIFF FLAG NO
[2023-11-22 13:45] LABS: Basophils Percent Auto 0.5 % (0-2); Eosinophils Absolute Auto 0.1 X10*3/uL (0.0-0.4); Hematocrit 41.4 % (42.0-52.0); Hemoglobin 14.2 g/dl (14.0-18.0); Imm Gran Abs Auto 0.01 X10*3/uL (0.00-0.03); Imm Gran Pct Auto 0.2 % (0.0-0.4); Lymphocytes Absolute Auto 1.3 X10*3/uL (1.2-4.9); Mean Corpuscular HGB Conc 34.3 g/dl (31.0-36.0); Mean Corpuscular Hemoglobin 28.6 pg (27.0-33.0); Mean Corpuscular Volume 83.5 fL (80.0-98.0); Mean Platelet Volume 10.5 fL (9.4-12.4); Monocytes Absolute Auto 0.4 X10*3/uL (0.1-1.2); Monocytes Percent Auto 9.1 % (2-11); Neutrophils Absolute Auto 2.3 x10*3/uL (2.0-8.3); Neutrophils Percent Auto 56.2 % (45-73); Platelet Count 206 X10*3/uL (160-400); Red Blood Count 4.96 X10*6/uL (4.60-5.80); Red Cell Distribution Width 12.4 % (11.0-16.0); White Blood Count 4.1 X10*3/uL (4.8-10.8)
[2023-11-22 14:01] LABS: Alanine Aminotransferase 36 U/L (0-40); Albumin Level 4.5 g/dL (3.5-5.0); Alkaline Phosphatase 68 U/L (39-117); Aspartate Amino Transferase 21 U/L (5-37); Bilirubin Direct 0.3 mg/dL (0.0-0.5); Bilirubin Total 0.9 mg/dL (0.0-1.0); Cholesterol 156 mg/dL (<200); HDL Cholesterol 43 mg/dL (>40); LDL Cholesterol Calculated 98 mg/dL (<100); Total Protein 7.7 g/dL (6.5-8.0); Triglycerides 75 mg/dL (<150)
[2023-11-22 14:21] LABS: TSH reflex Free T4 1.91 uIU/mL (0.32-4.0); Vitamin D 25-OH Total 20.3 ng/mL (>30)
[2023-11-22 14:32] LABS: Folate 8.5 ng/mL (> or = 4.0); Vitamin B12 450 pg/mL (200-900)
[2023-11-25 13:27] LABS: Lyme Abs Screen <0.90 index
== END 2023-11-22 10:16 | disposition home or self-care (01) ==
LOC: HO.HMGCLDS 10:15
PROVIDERS: PCP Internal Medicine; Visit Provider Internal Medicine
DX: E78.5 Hyperlipidemia, unspecified (principal); R53.82 Chronic fatigue, unspecified; G47.19 Other hypersomnia
CPT/HCPCS: 36415; 80061; 80076; 82306; 82607; 82746; 84443; 85025; 86617; 86618

== ENCOUNTER 2024-03-18 12:13 | Outpatient (AMB) | payer OTHER, SELFPAY ==
[2024-03-18 12:51] VITALS: BP 108/64; PULSE 82; O2SAT 98; BMI 28.0
--- NOTE | 2024-03-18 12:51 | A.OFFPC_ITS ---
Vital Signs 03/18/24 12:51 Height 5 ft 5 in Weight 168 lb BMI 28.0 BP 108/64 Blood Pressure Location Lt brachial Position Sitting Pulse 82 Pulse Source Pulse Oximeter Pulse Oximetry (%) 98 Oxygen Delivery Method Room Air Intake Visit Reasons: Annual PE Intake Note: Pt is here today for his PE Allergies No Known Allergies Allergy (Verified 03/18/24 13:15) Medication List - Last Reconciled 03/18/24 by Puja Nunez MD cholecalciferol (vitamin D3) 1,250 mcg PO QWEEK 3 months rosuvastatin 10 mg PO DAILY Tobacco use date assessed: 03/18/24 Dental Screening Dental Screen Date: 03/18/24 Did you have a dental visit in the last 12 months?: Yes Did you have a dental problem in the last 6 months where you did not have access to dental care?: No Was dental information given to patient?: Patient has dentist HPI Annual PE HPI Details 43-year-old male with hyperlipidemia his tory of vitamin-D deficiency, here today for physical exam. He has been taking rosuvastatin 10 mg daily, tolerating medication well, with recent fasting lipids within normal limits now. He was not states that his fatigue symptoms resolved after starting taking vitamin-D supplements he has been feeling well with no complaints at present time. , [facility] Medical History Vitamin D deficiency Difficulty swallowing Right wrist tendinitis Dyslipidemia Family history of aneurysm of blood vessel of brain Surgical History No pertinent past surgical history Family History Father Hypertension Mother Brain aneurysm Diabetes mellitus Other Brugada syndrome Social History Housing: House Alcohol intake: never Patient Tobacco Use Status: Never used Tobacco e-Cigarette/Vaping Use: Never Used Second Hand Smoke Exposure: No service: No Current occupational status: employed Cognitive needs: No Hearing needs: No Vision needs: Yes Questionnaire PHQ-9 Over the last 2 weeks, how often have you been bothered by any of the following problems? 1. Little interest or pleasure in doing things: not at all 2. Feeling down, depressed, or hopeless: not at all 3. Trouble falling or staying asleep, or sleeping too much: not at all 4. Feeling tired or having little energy: not at all 5. Poor appetite or overeating: not at all 6. Feeling bad about yourself - or that you are a failure or have let yourself or your family down: not at all 7. Trouble concentrating on things, such as reading the newspaper or watching television: not at all 8. Moving or speaking so slowly that other people could have noticed. Or the opposite - being so fidgety or restless that you have been moving around a lot more than usual: not at all 9. Thoughts that you would be better off or of hurting yourself in some way: not at all Total score: 0 Depression Screening Interpretation: Negative Depression Screening Done: Yes 57244 - PHQ-9 Billing: Yes Source: Developed by Drs. Serafin Cardenas, Alia Romero, Abisai Ha and colleagues, with an educational mari from [employer]. Thrive Questionnaire Date Thrive assessed: 03/18/24 I am a: Patient What is your living situation today?: I have a steady place to live Within the past 12 months, did the food you bought not last and you didn't have the money to get more?: Never true Within the past 12 months, did you worry whether your food would run out before you got money to buy more?: Never true Do you have trouble paying for medicines?: No Do you have trouble getting transportation to medical appointments?: No Do you have trouble paying your heating and electricity bill?: No Do you have trouble taking care of your child, family member or friend?: No Do you have trouble with day-to-day activities such as bathing, preparing meals, shopping, managing finances, etc.?: No Are you currently unemployed and looking for a job?: No Are you interested in more education?: No Please select the resources that you would like help with: None Currently or been in a relationship where the following occur: I choose not to answer THRIVE Score: 0 AUDIT C Alcohol Use Questionnaire (AUDIT-C) 1. How often do you have a drink containing alcohol?: Monthly or less 2. How many drinks containing alcohol do you have on a typical day when you are drinking?: 1 or 2 3. How often do you have six or more drinks on one occasion?: Monthly Total Score: 3 FRANK-7 AMB Questionnaire FRANK-7 Date FRANK - 7 assessed: 03/18/24 Feeling nervous, anxious, or on edge: 0 = Not at all Not being able to stop or control worryin = Not at all Worrying too much about different things: 0 = Not at all Trouble relaxin = Not at all Being so restless that it is hard to sit still: 0 = Not at all Becoming easily annoyed or irritable: 0 = Not at all Feeling afraid as if something awful might happen: 0 = Not at all Total FRANK-7 score (0-4 normal; 5-9 mild; 10-14 moderate; 15-21 severe): 0 Source: Developed by Drs. Serafin Cardenas, Alia Romero, Abisai Ha and colleagues, with an educational mari from [employer]. FRANK-7 Assessment Billing FRANK-7 Assessment Tool: FRANK-7 Assessment 02284 Review of Systems Const Reports no additional complaints Eyes Reports requires corrective lenses ENT Reports no additional complaints Card Denies chest pain, Denies chest pain at rest, Denies syncope, Denies irregular heart rhythm, Denies lightheadedness and Denies dyspnea Resp Denies chest congestion, Denies cough and Denies dyspnea GI Reports no additional complaints Reports no additional complaints Musc Reports no additional complaints Skin/Breast Denies rash Neuro Reports no additional complaints and Denies syncope Psych Reports no additional complaints Endo Reports no additional complaints Og/Lymph Reports no additional complaints Aller/Immun Reports no additional complaints Physical exam (Primary Care) Vital Signs: Last Vital Signs Pulse 82 03/18/24 12:51 BP 108/64 03/18/24 12:51 Pulse Ox 98 03/18/24 12:51 Oxygen Delivery Method Room Air 03/18/24 12:51 BMI result Body Mass Index 28.0 Tobacco/Smoking Status: Tobacco use Status Tobacco use date assessed 03/18/24 03/18/24 13:06 Patient Tobacco Use Status Never used Tobacco 03/18/24 12:53 e-Cigarette/Vaping Use Never Used 03/18/24 12:53 PHQ-9: PHQ-9 Score PHQ-9: Total score 0 03/18/24 13:17 Depression Screening Interpretation: Negative Thrive Assessment: Date of Thrive Assessment Date Thrive assessed 03/18/24 03/18/24 13:06 Currently or been in a relationship where the following occur: I choose not to answer Advance Care Planning discussion: Completed/Scanned Date of discussion: 03/18/24 Who was present: patient Forms completed: Health Care Proxy Time spent: 16-45 minutes Actual minutes spent: 16 Const General: cooperative and no acute distress Orientation/consciousness: patient oriented x3 HENMT Mouth: Normal oral and palatal mucosa present and moist mucous membranes Eyes General: appearance normal, both eyes and all related structures Neck Neck: Yes full ROM, Yes no lymphadenopathy and Yes supple Thyroid: Thyroid normal Chest Chest palpation & inspection: normal palpation of entire chest wall Resp Effort & Inspection: normal respiratory effort and able to speak in complete sentences Auscultation: clear to auscultation bilaterally Cardio Other: S1-S2 present regular rate and rhythm GI Palpation (GI): Soft to palpation, nontender and no guarding Auscultation: normal bowel sounds General: Yes no CVA tenderness Male General Exam: Yes normal external exam Back/Spine/Pelvis Back: no CVA tenderness and No back tenderness Skin General skin exam: no rashes or lesions noted Neuro General: patient oriented x3, gait normal, tone normal, moves all extremities, Normal light touch and pain sensation, no focal motor deficits and CN's II-XI intact bilaterally Extrem General: Yes full ROM, Yes no clubbing, cyanosis or edema, Yes no pedal edema and Yes normal gait Psych Appearance: grossly normal and well kempt Mental Status: mental status grossly normal Speech and movement: Normal speech and movement present Affect: normal affect Attitude: cooperative Thought process: Normal thought process present Office Procedures Flu Questionnaire Does the patient have a severe egg allergy?: No Does the patient have severe life threatening allergies?: No Does the patient have a fever or illness today?: No Has the patient ever had Guillain-Columbus Syndrome?: No Has the patient ever had any past reaction to a flu shot?: No Immunizations Fluarix Triv [id number] (PF) 45 mcg (15 mcg x 3)/0.5 mL IM syringe Performing Provider: Puja Nunez MD Performing Location: [facility] [place] [facility] Administered by: Corina Eckert CMA on 03/18/24 13:17 Dose Route Admin Location Dispensed Lot Number Expiration Date NDC Intervention Analyst 0.5 mL IM Right Deltoid 0.5 mL [id number] 11/16/24 11937-096-43 Active [employer] VIS Given Date VIS Provided VIS Publication Date 03/18/24 Single Vaccine 20 Eligibility Eligibility Date Funding Source Not VFC Eligible 03/18/24 Private Results Reviewed Results Reviewed: Name: Moise Infante Age/Sex: 43/M : 1980 Unit#: [id number] Attend Dr: Puja Nunez MD Re11/22/23 Status: DEP REF Location: [facility] Disch: SPEC : [id number] JOSÉ MIGUEL: 11/22/23-1020 STATUS: COMP REQ : [id number] RECD: 11/22/23-[address]: Puja Nunez MD COMP: 11/22/23-1421 ENTERED: 11/22/23-[address]: ORDERED: Liver Panel, Lipid Panel, Vitamin D 25-OH, TSH Rflx Test Result Flag Reference Total Bili 0.9 0.0-1.0 mg/dL Direct Bili 0.3 0.0-0.5 mg/dL AST (GOT) 21 5-37 U/L ALT (GPT) 36 0-40 U/L Protein, Total 7.7 6.5-8.0 g/dL Alb 4.5 3.5-5.0 g/dL Triglyceride 75 <150 mg/dL Desirable Triglyceride: less than 150 mg/dL Borderline High Triglyceride 150-199 mg/dL High Triglyceride: 200-499 mg/dL Very High Triglyceride: greater than or equal to 5OO mg/dL Cholesterol 156 <200 mg/dL Desirable Cholesterol: less than 200 mg/dL Borderline High Cholesterol: 200-239 mg/dL High Cholesterol: greater than 239 mg/dL LDL Calculated 98 <100 mg/dL Desirable LDL: less than 100 mg/dL Near Optimal/Above Optimal LDL: 110-129 mg/dL Borderline High LDL: 130-159 mg/dL High LDL: 160-189 mg/dL Very High LDL: greater than or equal to 190 mg/dL HDL 43 >40 mg/dL Desirable HDL: greater than 40 mg/dL Note: This HDL assay may give artificially low results in patients with liver disease. Alk Phos 68 39-117 U/L Vit D 25-OH Tot 20.3 L >30 ng/mL Health Based Reference Values* < 20 ng/mL Deficient 20-30 ng/mL Insufficient > 30 ng/mL Sufficient *Daisha GARCIA. N Engl J Med. 2007;357:266-280 Care must be taken in interpreting Vitamin D results from different laboratories and methodologies. Published data demonstrated that results from patients undergoing Coding Level of Care Code Est Pt Prev Care 40-64y(60467) Diagnoses Dyslipidemia E78.5 Vitamin D deficiency E55.9 Advanced directives, counseling/discussion Z71.89 Annual visit for general adult medical examination with abnormal findings Z00.01 Additional Codes FRANK-7 Assessment Billing - FRANK-7 Assessment Tool: FRANK-7 Assessment 98996 ([id number]) Vital Signs *Quality* - Advance Care Planning discussion: Completed/Scanned ([id number]) Vital Signs *Quality* - Time spent: 16-45 minutes ([id number]) Assessment & Plan Assessment & Plan (1) Dyslipidemia: Code(s): E78.5 - Hyperlipidemia, unspecified Category: Medical Plan: Last fasting lipids 12/07/2023 showed results within normal limits, will repeat another fasting lipid panel, continue with rosuvastatin 10 mg daily., in addition to adherence to low-cholesterol diet and regular exercise, at least 30 minutes 3 to 4 times a week. Advised patient to make healthy food choices, eat more fruits, vegetables, whole grains, wild caught fish and low-fat dairy. Limit amount of meat and fried or fatty food products, as well as processed foods and fast foods. (2) Vitamin D deficiency: Code(s): E55.9 - Vitamin D deficiency, unspecified Category: Medical Plan: Continue taking vitamin-D 3 supplements, will repeat another vitamin-D level (3) Advanced directives, counseling/discussion: Code(s): Z71.89 - Other specified counseling Plan: Initiated the conversation about Advanced Directives. Advanced Directives help patients prepare for current and future decisions about their medical treatment and place of care. Discussed with patient that it is a process where a patients current condition and prognosis are reviewed, their wishes for information regarding their illness are elicited, and likely medical dilemmas are presented and options discussed. Healthcare proxy form completed. The form can be amended as needed, reviewed yearly and make changes as needed (4) Annual visit for general adult medical examination with abnormal findings: Code(s): Z00.01 - Encounter for general adult medical examination with abnormal findings Plan: Will check appropriate labs. Recommended dental visit every 6 months and r egular eye exams, at least every 2 years. Take adequate calcium in diet and vitamin-D 3 at 2000 IU per cap once a day, in addition to weight-bearing exercises to help maintain good muscle tone and weight control. Instructed to do self testicular exam check for any mass. Flu vaccine given today patient will be getting his COVID booster sometime next week. Up-to-date with his Tdap Orders: Orders Lipid Panel Today E55.9 - Vitamin D deficiency, unspecified, E78.5 - Hyperlipidemia, unspecified, Z13.1 - Encounter for screening for diabetes mellitus Alanine Aminotransferase Today E55.9 - Vitamin D deficiency, unspecified, E78.5 - Hyperlipidemia, unspecified, Z13.1 - Encounter for screening for diabetes mellitus Aspartate Amino Transferase Today E55.9 - Vitamin D deficiency, unspecified, E78.5 - Hyperlipidemia, unspecified, Z13.1 - Encounter for screening for diabetes mellitus Vitamin D 25-OH Total Today E55.9 - Vitamin D deficiency, unspecified, E78.5 - Hyperlipidemia, unspecified, Z13.1 - Encounter for screening for diabetes mellitus Glucose Fasting Today E55.9 - Vitamin D deficiency, unspecified, E78.5 - Hyperlipidemia, unspecified, Z13.1 - Encounter for screening for diabetes mellitus Influenza [id number] Immunization Today Z23 - Encounter for immunization
== END 2024-03-18 13:31 | disposition home or self-care (01) ==
LOC: HO.HMCC 12:13
PROVIDERS: PCP Internal Medicine; Visit Provider Internal Medicine
DX: E78.5 Hyperlipidemia, unspecified (principal); E55.9 Vitamin D deficiency, unspecified; Z71.89 Other specified counseling; Z00.01 Encounter for general adult medical examination with abnormal findings; Z23 Encounter for immunization; Z00.00 Encounter for general adult medical examination without abnormal findings

== ENCOUNTER → 2024-03-18 12:13 | Outpatient (BNVA) | payer OTHER, SELFPAY | PROVIDERS: PCP Internal Medicine; Visit Provider Internal Medicine | DX: Z00.01 Encounter for general adult medical examination with abnormal findings (principal); Z23 Encounter for immunization; E78.5 Hyperlipidemia, unspecified; E55.9 Vitamin D deficiency, unspecified; Z71.89 Other specified counseling | CPT/HCPCS: 90471; 90656; 96127; 99396; 99497 ==

== ENCOUNTER 2024-03-21 08:55 | Outpatient (REF) | payer OTHER, SELFPAY ==
[2024-03-21 11:49] LABS: Alanine Aminotransferase 51 U/L (0-40); Aspartate Amino Transferase 28 U/L (5-37); Cholesterol 160 mg/dL (<200); Glucose Fasting 89 mg/dL (60-99); HDL Cholesterol 41 mg/dL (>40); LDL Cholesterol Calculated 97 mg/dL (<100); Triglycerides 113 mg/dL (<150)
[2024-03-21 11:56] LABS: Vitamin D 25-OH Total 88.8 ng/mL (>30)
== END 2024-03-21 08:56 | disposition home or self-care (01) ==
LOC: HO.HMGCLDS 08:55
PROVIDERS: PCP Internal Medicine; Visit Provider Internal Medicine
DX: E55.9 Vitamin D deficiency, unspecified (principal); E78.5 Hyperlipidemia, unspecified; Z13.1 Encounter for screening for diabetes mellitus
CPT/HCPCS: 36415; 80061; 82306; 82947; 84450; 84460

== ENCOUNTER 2024-04-18 10:06 | Outpatient (AMB) | payer OTHER, SELFPAY ==
[2024-04-18 10:54] VITALS: BP 112/70; PULSE 113; TEMP 37.4; O2SAT 97; BMI 27.5
--- NOTE | 2024-04-18 10:54 | MHC.OFFWIV ---
Intake Vital Signs 04/18/24 10:54 Height 5 ft 5 in Weight 165 lb BMI 27.5 BP 112/70 Blood Pressure Location Rt brachial Position Sitting Pulse 113 H Pulse Source Pulse Oximeter Temp 99.4 F Temp Source Oral Pulse Oximetry (%) 97 Oxygen Delivery Method Room Air Intake Visit Reasons: EP sore throat, cough Intake Note: Pt is here today c/o sore throat and a cough x2days Patient Tobacco Use Status: Never used Tobacco Allergies No Known Allergies Allergy (Verified 04/18/24 10:55) HPI EP sore throat, cough HPI Details Patient is a 43-year-old male comes to the walk-in clinic complaining of Pt is here today c/o sore throat and a cough x2days PFSH Medical History Vitamin D deficiency Difficulty swallowing Right wrist tendinitis Dyslipidemia Family history of aneurysm of blood vessel of brain Surgical History No pertinent past surgical history Family History Father Hypertension Mother Brain aneurysm Diabetes mellitus Other Brugada syndrome Social History Housing: House Alcohol intake: never Patient Tobacco Use Status: Never used Tobacco e-Cigarette/Vaping Use: Never Used Second Hand Smoke Exposure: No service: No Current occupational status: employed Cognitive needs: No Hearing needs: No Vision needs: Yes Review of Systems Const All systems reviewed & are unremarkable except as noted in HPI and below Physical Exam Vital Signs: Last Vital Signs Temp 99.4 F 04/18/24 10:54 Pulse 113 H 04/18/24 10:54 BP 112/70 04/18/24 10:54 Pulse Ox 97 04/18/24 10:54 Oxygen Delivery Method Room Air 04/18/24 10:54 BMI result Body Mass Index 27.5 Results AMB Rapid Strep AMB Rapid Strep Positive Last Edit by Corina Eckert CMA on 04/18/24 11:13 Results Reviewed Results Reviewed: Laboratory Last Values Strep Scn Rapid Clinic Positive 04/18/24 10:55 Patient positive on rapid strep screen Assessment & Plan Assessment & Plan Plan Patient is a 43-year-old male comes to the walk-in clinic. Patient has tachycardic and has low-grade fever. Rapid strep is positive. Pending results of flu COVID and RSV. A put through amoxicillin 500 mg twice a day for 10 days to treat his strep pharyngitis. He reports he has taken this in the past and had no issues. I also wrote him Melvi Barry for the cough. We discussed trying to prevent the infection to others, and he is going to have his daughter's tested with the railroad car cleaning supervisor as they have similar symptoms. His results for flu COVID and RSV are pending. He knows to follow up if symptoms persist or worsen, or go to the emergency department with worrisome symptoms. Orders: Orders AMB Rapid Strep Screen Today Z13.9 - Encounter for screening, unspecified Coding Level of Care Code Est Pt Level 4 (08394)
== END 2024-04-18 12:10 | disposition home or self-care (01) ==
PROVIDERS: PCP Internal Medicine; Visit Provider Physician Assistant Medical
DX: Z13.9 Encounter for screening, unspecified (principal)

== ENCOUNTER 2024-04-18 10:06 | Outpatient (REF) | payer OTHER, SELFPAY ==
[2024-04-18 14:27] LABS: Influenza A PCR NEGATIVE (Negative); Influenza B PCR NEGATIVE (Negative); Resp Syncy Virus RNA Qual PCR NEGATIVE (Negative); SARS COV2 PCR INHOUSE NEGATIVE (Negative)
== END 2024-04-18 10:07 | disposition home or self-care (01) ==
LOC: HO.LNP 10:06
PROVIDERS: PCP Internal Medicine; Visit Provider Physician Assistant Medical
DX: J06.9 Acute upper respiratory infection, unspecified (principal)
CPT/HCPCS: 0241U; 87880

== ENCOUNTER 2024-06-01 12:00 | Outpatient (AMB) | payer OTHER, SELFPAY ==
--- NOTE | 2024-06-01 12:25 | A.OFFVIS_ITS ---
Vital Signs 06/01/24 12:29 Height 5 ft 5 in Weight 160 lb 14.999 oz BMI 26.8 BP 116/60 Blood Pressure Location Lt brachial Position Sitting Pulse 61 Pulse Source Monitor Intake Visit Reasons: 1 yr followup w/ekg dx: family hx of heart disease Allergies No Known Allergies Allergy (Verified 04/18/24 10:55) Medication List - Last Reconciled 06/01/24 by Cali Aceves MD cholecalciferol (vitamin D3) 1,250 mcg PO QWEEK 3 months rosuvastatin 10 mg PO DAILY HPI Comments Details: Moise returns for follow-up. In the past, he was seen regarding family history of Brugada syndrome. His father apparently had severe fever and in that setting, EKGs had shown Brugada type 1 pattern. However, based on notes, there is no evidence of the same in other instances. Hence patient has been referred for family screening. There is no history of any syncope or any other major cardiac issues in the patient himself. He is fairly healthy without limitations. Even for his father, there is no evidence of any syncope or sudden cardiac or in fact anything else. He has other siblings who were quite healthy as well. Extended family is also fairly healthy without syncope or sudden . Since last seen, he states he is doing good. No new complaints. [facility] Medical History Vitamin D deficiency Difficulty swallowing Right wrist tendinitis Dyslipidemia Family history of aneurysm of blood vessel of brain Surgical History No pertinent past surgical history Family History Father Hypertension Mother Brain aneurysm Diabetes mellitus Other Brugada syndrome Social History Housing: House Alcohol intake: never Patient Tobacco Use Status: Never used Tobacco e-Cigarette/Vaping Use: Never Used Second Hand Smoke Exposure: No service: No Current occupational status: employed Cognitive needs: No Hearing needs: No Vision needs: Yes Review of Systems Const Denies weakness ENT Denies dizziness Card Denies chest pain, Denies chest pain with activity, Denies syncope, Denies rapid heart rate, Denies pedal edema, Denies edema, Denies leg edema, Denies lightheadedness, Denies palpitations, Denies dyspnea, Denies dyspnea on exertion and Denies orthopnea Resp Denies cough, Denies dyspnea and Denies dyspnea on exertion GI Denies hematochezia and Denies change in stool character Musc Denies abnormal gait, Denies muscle cramps, Denies muscle weakness, Denies numbness, Denies radiating pain into limb and Denies tingling Neuro Denies abnormal gait, Denies dizziness, Denies syncope, Denies numbness, Denies tingling and Denies weakness Endo Denies palpitations Physical Exam Vital Signs: Last Vital Signs Pulse 61 06/01/24 12:29 BP 116/60 06/01/24 12:29 BMI result Body Mass Index 26.8 Const General: comfortable and no acute distress Orientation/consciousness: patient oriented x3 HEENT Other: Unremarkable Head: Yes normal to inspection Neck Neck: Yes normal visual inspection Chest Chest palpation & inspection: normal inspection of the chest Resp Auscultation: clear to auscultation bilaterally Cardio Palpation: normal PMI Heart sounds: S1 normal heart sound present, S2 normal heart sound present, no gallops, no murmurs and no rubs GI Palpation (GI): Soft to palpation Back/Spine/Pelvis Other: unremarkable Skin General skin exam: no rashes or lesions noted Neuro General: patient oriented x3 Extrem General: Yes normal to inspection Psych Mental Status: mental status grossly normal Office Procedures EKG Details: EKG with sinus rhythm at 61/Min; appearance of LVH but likely normal variant; likely nonspecific Q-waves in the inferior leads; [place]. [id number], Complete Assessment & Plan Assessment & Plan (1) Family history of Brugada syndrome: Code(s): Z82.49 - Family history of ischemic heart disease and other diseases of the circulatory system Category: Medical Plan No clear evidence of Brugada on EKGs. Echocardiogram with LVEF of 60-65% and otherwise unremarkable. Discussed EKG with CHETAN Forrester and states that no further testing or follow up required. Overall, no specific management at this time. We can screen him with another EKG in 2 years. If that is also unremarkable and no new issues, then we can see him as needed. In the interim, he will contact us with any symptoms like dizziness or syncope or in fact anything cardiac sounding. Coding Level of Care Code Est Pt Level 3 (02225) Diagnoses Family history of Brugada syndrome Z82.49 CPT Codes EKG - CPT: 08662-Dhnwrjhuhsrwyqkse, Complete ([id number])
[2024-06-01 12:29] VITALS: BP 116/60; PULSE 61; BMI 26.8
== END 2024-06-01 12:45 | disposition home or self-care (01) ==
PROVIDERS: PCP Internal Medicine; Visit Provider Internal Medicine
DX: Z82.49 Family history of ischemic heart disease and other diseases of the circulatory system (principal)
CPT/HCPCS: 93010; 99213

== ENCOUNTER → 2024-06-01 12:00 | Outpatient (BNVA) | payer OTHER, SELFPAY | PROVIDERS: PCP Internal Medicine; Visit Provider Internal Medicine | DX: Z82.49 Family history of ischemic heart disease and other diseases of the circulatory system (principal); R94.31 Abnormal electrocardiogram [ECG] [EKG]; I45.10 Unspecified right bundle-branch block | CPT/HCPCS: 93005; 99212 ==

== ENCOUNTER 2024-06-19 10:42 | Outpatient (AMB) | payer OTHER, SELFPAY ==
[2024-06-19 10:43] VITALS: BP 118/66; PULSE 90; TEMP 36.4; O2SAT 98; BMI 21.6
--- NOTE | 2024-06-19 10:43 | AM.OFFWIN_ITS ---
Intake Vital Signs 3 06/19/24 10:43 Height 5 ft 5 in Weight 130 lb BMI 21.6 BP 118/66 Blood Pressure Location Rt brachial Position Sitting Pulse 90 Pulse Source Pulse Oximeter Temp 97.6 F Temp Source Oral Pulse Oximetry (%) 98 Intake Visit Reasons: EP-rt hip abscess Intake Note: pt is here for right hip abscess, patient had it lanced yesterday and stated he would like for someone to look at it. Patient Tobacco Use Status: Never used Tobacco Allergies No Known Allergies Allergy (Verified 06/19/24 10:43) Do you need a note to return to daycare/school/sports/work: No HPI HPI Comments 2 History of Present Illness0 Details 43 y/o male patient who presents to the walk in clinic with c/o right buttock abscess. He was seen 06/17/24 @ [facility], abscess was drained and plain Gauze was inserted to allow drainage. He was told to f/u in 2 days for dressing change. Denies pain, fevers or chills. [facility] Medical History Vitamin D deficiency Difficulty swallowing Right wrist tendinitis Dyslipidemia Family history of aneurysm of blood vessel of brain Surgical History No pertinent past surgical history Family History Father Hypertension Mother Brain aneurysm Diabetes mellitus Other Brugada syndrome Social History Housing: House Alcohol intake: never Patient Tobacco Use Status: Never used Tobacco e-Cigarette/Vaping Use: Never Used Second Hand Smoke Exposure: No service: No Current occupational status: employed Cognitive needs: No Hearing needs: No Vision needs: Yes Review of Systems Const All systems reviewed & are unremarkable except as noted in HPI and below Physical Exam Vital Signs: Last Vital Signs Temp 97.6 F 06/19/24 10:43 Pulse 90 06/19/24 10:43 BP 118/66 06/19/24 10:43 Pulse Ox 98 06/19/24 10:43 BMI result Body Mass Index 21.6 Const General: cooperative and no acute distress Orientation/consciousness: patient oriented x3 Neuro General: patient oriented x3, gait normal and moves all extremities Extrem Upper/lower leg/hip images: 2 1. Open wound, removed ~ 0.5 inch gauze soaked with yellow/purulent malodorous drainage. Wound TTP with Erythematous boarders and purulent drainage. Psych Speech and movement: Normal speech and movement present Assessment & Plan Assessment & Plan (1) Abscess: Code(s): L02.91 - Cutaneous abscess, unspecified Plan: Ordered Keflex Removed Packing Gauze, clean wound and applied Dry dressing. Advised to change dressings daily and keep wound clean. Medications: New 2 cephalexin 500 mg PO BID 7 days 14 caps 0RF L02.91 - Cutaneous abscess, unspecified Coding Level of Care Code Est Pt Level 4 (65910) Diagnoses Abscess L02.91 Time Spent (min) 20
--- OUTSIDE RECORDS SUMMARY | 2024-06-19 11:22 | XMS_ITS | Encounter Summary ---
Author Organization [employer] [facility] Address [address] [place] [address] [facility] [place] [address] Care Team Providers Care Logging Tractor Operator Name Role Phone Unavailable Primary Care Provider Unavailabl e Encounter Details Date Type Department Care Team (Latest Contact Info) Description 08/25/2020 Abstract [facility] CONVERSIONS Dental, Provider, DDS Social History Tobacco Use Types Packs/Day Years Used Date Smoking Tobacco: Never Assessed Sex and Gender Information Value Date Recorded Sex Assigned at Male 03/19/2022 10:29 AM EDT Legal Sex Male 10:29 AM EDT Gender Identity Male 03/19/2022 10:29 AM EDT Sexual Orientation Straight 03/19/2022 10 :29 AM EDT documented as of this encounter Plan of Treatment Upcoming Encounters Date Type Department Care Team (Late st Contact Info) Description 09/25/2024 10:00 AM EDT Office Visit [facility] ADULT DENTAL [address] [place] [address] Evelio Larryaris [address] [place] [address] documented as of this encounter Visit Diagnoses Not on filedocumented in this encounter
--- OUTSIDE RECORDS SUMMARY | 2024-06-19 11:22 | XMS_ITS | Encounter Summary ---
Author Organization [employer] [facility] Address [address] [place] [address] 7 [place] [address] Care Team Providers Care Internal Communications Manager Name Role Phone Unavailable Primary Care Provider Unavailabl e Encounter Details Date Type Department Care Team (Latest Contact Info) Description 11/04/2018 Abstract [facility] CONVERSIONS Dental, Provider, DDS Social History Tobacco [...] Description 09/25/2024 10:00 AM EDT Office Visit [facility] ADULT DENTAL [address] [place] [address] Evelio Larryaris [address] [place] [address] documented as of this encounter Visit Diagnoses Not on filedocumented in this encounter
--- OUTSIDE RECORDS SUMMARY | 2024-06-19 11:22 | XMS_ITS | Clinical Summary ---
Author Organization [employer] Address [address] [place] [address] 7 [place] [address] Care Team Providers Care Water Treatment Plant Supervisor Name Role Phone Unavailable Primary Care Provider Unavailabl e Allergies No known active allergies Medications rosuvastatin (Crestor) 10 MG tablet Take 10 mg by mouth. 08/26/2020 Active Active Problems Problem Noted Date Diagnosed Date Dental calculus 01/31/2023 Dental caries 01/31/2023 Encounters Date Type Department Care Team Description 04/03/2024 10:30 AM EST Office Visit [facility] ADULT DENTAL [address] [place] [address] Perry Ndiaye DDS Dental caries (Primary Dx) 03/27/2024 1:00 PM EST Office Visit [facility] ADULT DENTAL [address] [place] [address] Merly Larry Dental calculus (Primary Dx); Dental caries from Last 3 Months Social History Tobacco Use Types Packs/Day Years Used Date Smoking Tobacco: Never Smokeless Tobacco: Never Tobacco Cessation:Counseling Given: Not Answered Sex and Gender Information Value Date Recorded Sex Assigned at Male 03/19/2022 10:29 AM EDT Legal Sex Male 10:29 AM EDT Gender Identity Male 03/19/2022 10:29 AM EDT Sexual Orientation Straight 03/19/2022 10 :29 AM EDT Last Filed Vital Signs Vital Sign Reading Time Taken Comments Blood Pressure 126/74 04/03/2024 10:54 AM EST Pulse 74 01/31/2023 10:36 AM EDT Temperature - - Respiratory Rate - - Oxygen Saturation - - Inhaled Oxygen Concentration - - Weight - - Height - - Body Mass Index - - Plan of Treatment Upcoming Encounters Date Type Department Care Team (Late Contact Info) Description 09/25/2024 10:00 AM EDT Office Visit [facility] ADULT DENTAL [address] [place] [address] Merly Larry [address] [place] [address] Health Maintenance Due Date Last Done Comments Depression Screening 1980 HIV Screening 1980 Lipid Panel 1980 SDOH Screening 1980 Alcohol/Substance Use Screening 1992 Family Planning (PISQ) 08/11/1995 Hepatitis C Screening 1998 DTaP/Tdap/Td Vaccines (1 - Tdap) 08/11/1999 Hepatitis B Vaccines (1 of 3 - 19+ 3-dose series) 08/11/1999 COVID-19 Vaccine ( - 2023- season) 2024 Influenza Vaccine (#1) 2024 Dental Oral Exam 09/25/2024 03/27/2024, , 08/05/2020, Additional history exists Dental Prophylaxis 09/25/2024 03/27/2024, 0 09/03/2023, 01/31/2023, Additional history exists Dental X-Ray: Bitewings 03/28/2025 03/27/20, 01/31/2023, 08/05/2020, Additional history exists Tobacco Screening 04/03/2025 04/03/2024 Dental X-Ray: Full Mouth 08/06/2025 08/05/2020, 10/19 Zoster Vaccines (1 of 2) 2030 RSV Patients and Patients Aged 60 years or older (1 - 1-dose 75+ series) 08/11/2055 HIB Vaccines Aged Out No longer eligi ble based on patient's age to complete this topic HPV Vaccines Aged Out No longer eligi ble based on patient's age to complete this topic Hepatitis A Vaccines Aged Out No long er eligible based on patient's age to complete this topic IPV Vaccines Aged Out No longer eligi ble based on patient's age to complete this topic Meningococcal Vaccine Aged Out No brittni juanito eligible based on patient's age to complete this topic Pneumococcal Vaccine: Pediatrics (0 to 5 Years) and At-Risk Patients (6 to 49) Years) Aged Out No longer eligible based on patient's age to complete this topic RSV under 20 months Aged Out No longe r eligible based on patient's age to complete this topic Rotavirus Vaccines Aged Out No longer eligible based on patient's age to complete this topic Procedures Procedure Name Priority Date/Time Associated Diagnosis Comments ADJUNCTIVE GENERAL SERVICES - PROFESSIONAL VISITS - CASE PRESENTATION, SUBSEQUENT TO DETAILED AND EXTENSIVE TREATMENT PLANNING Routine 04/03/2024 10:30 AM EST 16 MO RESTORATIVE - RESIN-BASED COMPOSITE RESTORATIONS - DIRECT - RESIN-BASED COMPOSITE - TWO SURFACES, POSTERIOR Routine 04/03/2024 10:30 AM EST PERIODIC ORAL EVALUATION - ESTABLISHED PATIENT Routine 03/27/2024 1:00 PM EST INTRAORAL - PERIAPICAL EACH ADDITIONAL RADIOGRAPHIC IMAGE Routine 03/27/2024 1:00 PM EST Dental calculus INTRAORAL - PERIAPICAL FIRST RADIOGRAPHIC IMAGE Routine 03/27/2024 1:00 PM EST Dental calculus BITEWINGS - 4 RADIOGRAPHIC IMAGES Routine 03/27/2024 1:00 PM EST Dental calculus PROPHYLAXIS - ADULT Routine 03/27/2024 1 :00 PM EST Dental calculus ORAL HYGIENE INSTRUCTIONS Routine 2023 1:00 PM EST Dental calculus DIAGNOSTIC - DIAGNOSTIC IMAGING - INTRAORAL - COMPREHENSIVE SERIES OF RADIOGRAPHIC IMAGES Routine 08/05/2020 12:00 AM EDT from Last 3 Months or Most Recently Relevant to Health Maintenance Insurance [facility]
== END 2024-06-19 11:37 | disposition home or self-care (01) ==
PROVIDERS: PCP Internal Medicine; Visit Provider Nurse Practitioner Family
DX: L02.91 Cutaneous abscess, unspecified (principal)

== ENCOUNTER 2025-04-21 12:50 | Outpatient (AMB) | payer OTHER, SELFPAY ==
[2025-04-21 13:05] VITALS: BP 110/72; PULSE 70; RESP 15; TEMP 36.8; O2SAT 97; BMI 28.5
--- NOTE | 2025-04-21 13:05 | MHC.PC.OV ---
Vital Signs 04/21/25 13:05 Height 5 ft 5 in Weight 171 lb BMI 28.5 BP 110/72 Blood Pressure Location Rt brachial Position Sitting Respiration 15 Pulse 70 Pulse Source Pulse Oximeter Temp 98.2 F Temp Source Oral Pulse Oximetry (%) 97 Oxygen Delivery Method Room Air Intake Visit Reasons: Pt is here today for his PE Intake Note: Pt is here today for his PE Section Laborer Required: No Allergies No Known Allergies Allergy (Verified 04/21/25 13:09) Medication List - Last Reconciled 04/21/25 by Puja Nunez MD multivitamin 1 tab PO DAILY rosuvastatin 10 mg PO DAILY Tobacco use date assessed: 04/21/25 Dental Screening Dental Screen Date: 04/21/25 Did you have a dental visit in the last 12 months?: Yes Did you have a dental problem in the last 6 months where you did not have access to dental care?: No Was dental information given to patient?: Patient has dentist HPI HPI Comments History of Present Illness Details Chief Complaint The patient presents for a wellness visit, to review recent lab work, and for general health maintenance. History of Present Illness HPI Comments ? History of Present Illness ? Details 44-year-old male with past medical history significant for dyslipidemia, currently on rosuvastatin 10 mg daily here for his physical exam. Up-to-date with his yearly flu vaccine and Tdap ? Recent lab work shows a normal fasting glucose and vitamin D levels . His fasting lipids are within the normal range, but noted to be higher than the previous year. Liver enzymes are slightly elevateatiend. Drinks alcohol every now and then. The patient has a history of low back pain, for which chiropractic adjustments have provided relief, particularly after pulling a muscle at the gym. [facility] Medical History (Updated 04/21/25 @ 13:29 by Puja Nunez MD) Abscess Difficulty swallowing Right wrist tendinitis Dyslipidemia Family history of aneurysm of blood vessel of brain Surgical History No pertinent past surgical history Family History Father Hypertension Mother Brain aneurysm Diabetes mellitus Other Brugada syndrome Social History Housing: House Alcohol intake: never Patient Tobacco Use Status: Never used Tobacco e-Cigarette/Vaping Use: Never Used Second Hand Smoke Exposure: No service: No Current occupational status: employed Cognitive needs: No Hearing needs: No Vision needs: Yes Questionnaire PHQ-9 Over the last 2 weeks, how often have you been bothered by any of the following problems? 1. Little interest or pleasure in doing things: not at all 2. Feeling down, depressed, or hopeless: not at all 3. Trouble falling or staying asleep, or sleeping too much: not at all 4. Feeling tired or having little energy: not at all 5. Poor appetite or overeating: not at all 6. Feeling bad about yourself - or that you are a failure or have let yourself or your family down: not at all 7. Trouble concentrating on things, such as reading the newspaper or watching television: not at all 8. Moving or speaking so slowly that other people could have noticed. Or the opposite - being so fidgety or restless that you have been moving around a lot more than usual: not at all 9. Thoughts that you would be better off or of hurting yourself in some way: not at all Total score: 0 Depression Screening Interpretation: Negative Depression Screening Done: Yes 24777 - PHQ-9 Billing: Yes Source: Developed by Drs. Serafin Cardenas, Alia Romero, Abisai Ha and colleagues, with an educational mari from [employer]. Thrive Questionnaire Date Thrive assessed: 03/11/24 I am a: Patient What is your living situation today?: I have a steady place to live Within the past 12 months, did the food you bought not last and you didn't have the money to get more?: Never true Within the past 12 months, did you worry whether your food would run out before you got money to buy more?: Never true Do you have trouble paying for medicines?: No Do you have trouble getting transportation to medical appointments?: No Do you have trouble paying your heating and electricity bill?: No Do you have trouble taking care of your child, family member or friend?: No Do you have trouble with day-to-day activities such as bathing, preparing meals, shopping, managing finances, etc.?: No Are you currently unemployed and looking for a job?: No Are you interested in more education?: No Please select the resources that you would like help with: None Currently or been in a relationship where the following occur: I choose not to answer THRIVE Score: 0 AUDIT C Alcohol Use Questionnaire (AUDIT-C) 1. How often do you have a drink containing alcohol?: Never Total Score: 0 FRANK-7 AMB Questionnaire FRANK-7 Date FRANK - 7 assessed: 03/18/24 Feeling nervous, anxious, or on edge: 0 = Not at all Not being able to stop or control worryin = Not at all Worrying too much about different things: 0 = Not at all Trouble relaxin = Not at all Being so restless that it is hard to sit still: 0 = Not at all Becoming easily annoyed or irritable: 0 = Not at all Feeling afraid as if something awful might happen: 0 = Not at all Total FRANK-7 score (0-4 normal; 5-9 mild; 10-14 moderate; 15-21 severe): 0 Source: Developed by Drs. Serafin Cardenas, Alia Romero, Abisai Ha and colleagues, with an educational mari from [employer]. FRANK-7 Assessment Billing FRANK-7 Assessment Tool: FRANK-7 Assessment 48205 Review of Systems Const Denies weakness Eyes Reports no additional complaints ENT Denies dizziness Card Denies chest pain, Denies chest pain with activity, Denies syncope, Denies rapid heart rate, Denies pedal edema, Denies lightheadedness, Denies palpitations, Denies dyspnea and Denies dyspnea on exertion Resp Denies cough, Denies dyspnea and Denies dyspnea on exertion GI Denies abdominal pain, Denies change in bowel habits, Denies change in stool character and Denies heartburn Musc Denies abnormal gait, Denies muscle cramps, Denies muscle weakness, Denies numbness, Denies radiating pain into limb and Denies tingling Neuro Denies abnormal gait, Denies dizziness, Denies syncope, Denies numbness, Denies tingling and Denies weakness Endo Denies palpitations Physical exam (Primary Care) Vital Signs: Last Vital Signs Temp 98.2 F 04/21/25 13:05 Pulse 70 04/21/25 13:05 Resp 15 04/21/25 13:05 BP 110/72 04/21/25 13:05 Pulse Ox 97 04/21/25 13:05 Oxygen Delivery Method Room Air 04/21/25 13:05 BMI result Body Mass Index 28.5 Tobacco/Smoking Status: Tobacco use Status Tobacco use date assessed 04/21/25 04/21/25 13:08 Patient Tobacco Use Status Never used Tobacco 04/21/25 13:08 e-Cigarette/Vaping Use Never Used 04/21/25 13:08 PHQ-9: PHQ-9 Score PHQ-9: Total score 0 04/21/25 13:29 Depression Screening Interpretation: Negative Thrive Assessment: Date of Thrive Assessment Date Thrive assessed 03/11/24 04/21/25 13:08 Currently or been in a relationship where the following occur: I choose not to answer Narrative Physical Exam - Abdomen: Soft, non-tender to palpation throughout. - Musculoskeletal: Full range of motion of the knee on flexion without tenderness. - No tenderness with leg lift or hip movements. Const General: cooperative and no acute distress Orientation/consciousness: patient oriented x3 HENMT Mouth: Normal oral and palatal mucosa present and moist mucous membranes Eyes General: appearance normal, both eyes and all related structures Neck Neck: Yes full ROM, Yes no lymphadenopathy and Yes supple Thyroid: Thyroid normal Chest Chest palpation & inspection: normal palpation of entire chest wall Resp Effort & Inspection: normal respiratory effort and able to speak in complete sentences Auscultation: clear to auscultation bilaterally Cardio Other: S1-S2 present regular rate and rhythm GI Palpation (GI): Soft to palpation, nontender and no guarding Auscultation: normal bowel sounds General: Yes no CVA tenderness Male General Exam: Yes normal external exam Back/Spine/Pelvis Back: no CVA tenderness and No back tenderness Skin General skin exam: no rashes or lesions noted Neuro General: patient oriented x3, gait normal, tone normal, moves all extremities, Normal light touch and pain sensation, no focal motor deficits and CN's II-XI intact bilaterally Extrem General: Yes full ROM, Yes no clubbing, cyanosis or edema, Yes no pedal edema and Yes normal gait Psych Appearance: grossly normal and well kempt Mental Status: mental status grossly normal Speech and movement: Normal speech and movement present Affect: normal affect Results Reviewed Results Reviewed: Name: Moise Infante Age/Sex: 43/M : 1980 Unit#: [id number] Attend Dr: Puja Nunez MD Re03/21/24 Status: DEP REF Location: [facility] Disch: SPEC : [id number] JOSÉ MIGUEL: 03/21/24 STATUS: COMP REQ : [id number] RECD: 03/21/[address]: Puja Nunez MD COMP: 03/21/24 ENTERED: 03/21/[address] [facility] [address]: ORDERED: Glu Fasting, AST, ALT, Lipid Panel, Vitamin D 25-OH Test Result Flag Reference FBS 89 60-99 mg/dL AST (GOT) 28 5-37 U/L ALT (GPT) 51 H 0-40 U/L Triglyceride 113 <150 mg/dL Desirable Triglyceride: less than 150 mg/dL Borderline High Triglyceride 150-199 mg/dL High Triglyceride: 200-499 mg/dL Very High Triglyceride: greater than or equal to 5OO mg/dL Cholesterol 160 <200 mg/dL Desirable Cholesterol: less than 200 mg/dL Borderline High Cholesterol: 200-239 mg/dL High Cholesterol: greater than 239 mg/dL LDL Calculated 97 <100 mg/dL Desirable LDL: less than 100 mg/dL Near Optimal/Above Optimal LDL: 110-129 mg/dL Borderline High LDL: 130-159 mg/dL High LDL: 160-189 mg/dL Very High LDL: greater than or equal to 190 mg/dL HDL 41 >40 mg/dL Desirable HDL: greater than 40 mg/dL Note: This HDL assay may give artificially low results in patients with liver disease. Vit D 25-OH Tot 88.8 >30 ng/mL Health Based Reference Values* < 20 ng/mL Deficient 20-30 ng/mL Insufficient > 30 ng/mL Sufficient *Daisha GARCIA. N Engl J Med. 2007;357:266-280 Care must be taken in interpreting Vitamin D results from different laboratories and methodologies. Published data demonstrated that results from patients undergoing hemodialysis may show a negative bias when tested with various automated 25-OH vitamin D assays when compared to LC-MS/MS. When testing samples from patients whose predominant form of Vitamin D is Vitamin D2, such as patients receiving Vitamin D2 supplementation, results that are subtherapeutic should be confirmed with another method such as LC-MS/MS. Coding Level of Care Code Est Pt Prev Care 40-64y(56549) Diagnoses Annual visit for general adult medical examination with abnormal findings Z00. Dyslipidemia E78.5 Additional Codes FRANK-7 Assessment Billing - FRANK-7 Assessment Tool: FRANK-7 Assessment 52394 ([id number]) PHQ-9 - 35045 - PHQ-9 Billing: Yes ([id number]) Assessment & Plan Assessment & Plan (1) Annual visit for general adult medical examination with abnormal findings: Code(s): Z00.01 - Encounter for general adult medical examination with abnormal findings (2) Dyslipidemia: Code(s): E78.5 - Hyperlipidemia, unspecified Category: Medical Plan Assessment and Plan 1 annual visit for general medical exam with a normal findings Fasting labs reviewed with patient Recommended dental visit every 6 months and regular eye exams, at least every 2 years. Take adequate calcium in diet and vitamin-D 3 at 2000 IU per cap once a day, in addition to weight-bearing exercises to help maintain good muscle tone and weight control. Instructed to do self-testicular exam check for any mass. Up-to-date with his flu vaccine and Tdap. Does not want to get COVID booster. 2. Dyslipidemia The patient's cholesterol is within the normal range but triglycerides are noted to be higher than in the past. Continue current simvastatin medication; a new prescription with 4 refills was sent to the preferred pharmacy. Eye and Dental Care: Advised to schedule routine appointments with an eye doctor and dentist. Lifestyle: Recommended continued exercise with attention to adequate hydration with water and electrolytes to prevent dizziness. Patient was informed and verbally consented to the use of an ambient scribe for clinic note documentation during this visit. Medications: Refilled rosuvastatin 10 mg PO DAILY 90 tabs 4RF E78.5 - Hyperlipidemia, unspecified
--- OUTSIDE RECORDS SUMMARY | 2025-04-21 15:11 | XMS_ITS | Encounter Summary ---
Author Organization [employer] [facility] Address [address] [place] [address] [address] [place] [address] Care Team Providers Care Aerial Gunner Superintendent Name Role Phone Unavailable Primary Care Provider Unavailabl e Encounter Details Date Type Department Care Team (Latest Contact Info) Description 08/25/2020 Abstract [facility] CONVERSIONS Dental, Provider, DDS Social History [...] Care Team (Late st Contact Info) Description 05/25/2025 8:45 AM EST Office Visit [facility] ADULT DENTAL [address] [place] [address] Evelio Larryaris [address] [place] [address] documented as of this encounter Visit Diagnoses Not on filedocumented in this encounter
--- OUTSIDE RECORDS SUMMARY | 2025-04-21 15:11 | XMS_ITS | Clinical Summary ---
Author Organization [employer] [facility] Address [address] [place] [address] 7 [place] [address] Care Team Providers Care Merchandise Handler Name Role Phone Unavailable Primary Care Provider Unavailabl e Allergies No known active allergies Medications rosuvastatin (Crestor) 10 MG tablet Take 10 mg by mouth. 08/26/2020 Active Active Problems Problem Noted Date Diagnosed Date Normal oral exam 10/06/2024 Dental calculus 01/31/2023 Dental caries 01/31/2023 Social History Tobacco Use Types Packs/Day Years [...] Reading Time Taken Comments Blood Pressure 126/74 10/06/2024 9:40 AM EDT Pulse 74 01/31/2023 10:36 AM EDT Temperature - - Respiratory Rate - - Oxygen Saturation - - Inhaled Oxygen Concentration - - Weight - - Height - - Body Mass Index - - Plan of Treatment Upcoming Encounters Date Type Department Care Team (Late st Contact Info) Description 05/25/2025 8:45 AM EST Office Visit [facility] ADULT DENTAL [address] [place] [address] Kendy, Merly [address] [place] [address] Health Maintenance Due Date Last Done Comments Depression Screening 1980 HIV Screening 1980 Lipid Panel 1980 SDOH Screening 1980 Disability Screening 1980 Alcohol/Substance Use Screening 1992 Family Planning (PISQ) 08/11/1995 HPV Vaccines (1 - Male 3-dose series) 08/11/1995 Hepatitis C Screening 1998 Hepatitis B Vaccines (1 of 3 - 19+ 3-dose series) 08/11/1999 DTaP/Tdap/Td Vaccines (2 - Td or Tdap) 08/14/2022 08/14/2012 Dental Oral Exam 09/25/2024 03/27/2024, , 08/05/2020, Additional history exists COVID-19 Vaccine ( - season) 2025 Influenza Vaccine (#1) 2025 09/15/2014 Dental X-Ray: Bitewings 03/28/2025 03/27/20, 01/31/2023, 08/05/2020, Additional history exists Dental Prophylaxis 03/29/2025 09/25/2024, 1 05/27/2023, 09/03/2023, Additional history exists Dental X-Ray: Full Mouth 08/06/2025 08/05/2020, 10/19 Tobacco Screening 10/06/2025 10/06/2024 Zoster Vaccines (1 of 2) 2030 RSV Patients and Patients Aged 60 years or older (1 - 1-dose 75+ series) 08/11/2055 Hepatitis A Vaccines Aged Out 10/09/2012 No long er eligible based on patient's age to complete this topic HIB Vaccines Aged Out No longer eligi ble based on patient's age to complete this topic IPV Vaccines Aged Out No longer eligi ble based on patient's age to complete this topic Meningococcal B Vaccine Aged Out No l onger eligible based on patient's age to complete this topic Meningococcal Vaccine Aged Out No brittni juanito eligible based on patient's age to complete this topic Pneumococcal Vaccine: Pediatrics (0 to 5 Years) and At-Risk Patients (6 to 49) Years Aged Out No longer eligible based on patient's age to complete this topic RSV under 20 months Aged Out No longe r eligible based on patient's age to complete this topic Rotavirus Vaccines Aged Out No longer eligible based on patient's age to complete this topic Procedures Procedure Name Priority Date/Time Associated Diagnosis Comments PROPHYLAXIS - ADULT Routine 09/25/2024 8 :00 AM EDT BITEWINGS - 4 RADIOGRAPHIC IMAGES Routine 03/27/2024 1:00 PM EST Dental calculus PERIODIC ORAL EVALUATION - ESTABLISHED PATIENT Routine 03/27/2024 1:00 PM EST INTRAORAL - COMPLETE SERIES OF RADIOGRAPHIC IMAGES Routine 08/05/2020 12:00 AM EDT from Last 3 Months or Most Recently Relevant to Health Maintenance Insurance [facility] D[facility] - HSN PARTIAL (MEDICAID)
--- OUTSIDE RECORDS SUMMARY | 2025-04-21 15:11 | XMS_ITS | Encounter Summary ---
Author Organization [employer] [facility] Address [address] [place] [address] [address] [place] [address] Care Team Providers Care Computer Aided Design Drafter Name Role Phone Unavailable Primary Care Provider Unavailabl e Encounter Details Date Type Department Care Team (Latest Contact Info) Description 11/04/2018 Abstract [facility] CONVERSIONS Dental, Provider, DDS Social History Tobacco [...] Description 05/25/2025 8:45 AM EST Office Visit [facility] ADULT DENTAL [address] [place] [address] Kendy Merly [address] [place] [address] documented as of this encounter Visit Diagnoses Not on filedocumented in this encounter
== END 2025-04-21 14:04 | disposition home or self-care (01) ==
PROVIDERS: PCP Internal Medicine; Visit Provider Internal Medicine
DX: Z00.01 Encounter for general adult medical examination with abnormal findings (principal); E78.5 Hyperlipidemia, unspecified

== ENCOUNTER → 2025-04-21 12:50 | Outpatient (BNVA) | payer SELFPAY | PROVIDERS: PCP Internal Medicine; Visit Provider Internal Medicine | DX: Z00.01 Encounter for general adult medical examination with abnormal findings (principal); E78.5 Hyperlipidemia, unspecified | CPT/HCPCS: 96127; 99396 ==